=== PATIENT | female | born 1945 | race African-American/Black ===

== ENCOUNTER 2016-05-03 07:21 | Observation (INO) | payer MEDICARE, MEDICAID ==
[2016-05-03] MEDS ORDERED: METHYLPREDNISOLONE INJ 125 MG/2 ML SDV IV ONE (08:01)
[2016-05-03 08:10] LABS: ABSOLUTE BASOPHILS # (AUTO) 0.1 10^3/uL (0.0-0.2); ABSOLUTE EOSINOPHILS # (AUTO) 0.4 10^3/uL (0.0-0.6); ABSOLUTE LYMPHOCYTES (AUTO) 1.9 10^3/uL (0.5-4.7); ABSOLUTE MONOCYTES (AUTO) 0.6 10^3/uL (0.1-1.4); ABSOLUTE NEUT (AUTO) 6.5 10^3/uL (1.7-8.2); BASOPHILS % (AUTO) 0.7 % (0-2); EOSINOPHILS % (AUTO) 4.3 % (0-6); HEMATOCRIT 37.4 % (36.0-47.0); HEMOGLOBIN 12.3 g/dL (12.0-15.5); HGB HCT DIFFERENCE -0.5; MEAN CORPUSCULAR HEMOGLOBIN 28.7 pg (27.0-33.4); MEAN CORPUSCULAR HGB CONC 32.8 g/dL (32.0-36.0); MEAN CORPUSCULAR VOLUME 88 fl (80-97); MONOCYTES % (AUTO) 6.2 % (3-13); RED BLOOD COUNT 4.27 10^6/uL (3.72-5.28); RED CELL DISTRIBUTION WIDTH 18.1 % (11.5-14.0); SEGMENTED NEUTROPHILS % (AUTO) 68.8 % (42-78); WHITE BLOOD COUNT 9.4 10^3/uL (4.0-10.5)
[2016-05-03 08:12] LABS: VENOUS BLOOD BASE EXCESS -0.6 mmol/L; VENOUS BLOOD HCO3 24.9 mmol/L (20-32); VENOUS BLOOD PCO2 44.3 mmHg (35-63); VENOUS BLOOD PH 7.37 (7.30-7.42)
--- NOTE | 2016-05-03 08:25 | EKG REPORT ---
SEVERITY:- ABNORMAL ECG - SINUS RHYTHM LEFT AXIS DEVIATION PROBABLE LEFT VENTRICULAR HYPERTROPHY : Confirmed by: Anant Watts 03-May-2016 08:25:09
[2016-05-03 08:41] LABS: APPEARANCE,URINE CLOUDY; BILIRUBIN,URINE NEGATIVE (NEGATIVE); GLUCOSE, URINE NEGATIVE (NEGATIVE); KETONES,URINE NEGATIVE (NEGATIVE); LEUKOCYTE ESTERASE,URINE NEGATIVE (NEGATIVE); NITRITE,URINE NEGATIVE (NEGATIVE); PROTEIN,URINE NEGATIVE (NEGATIVE); UROBILINOGEN,URINE NEGATIVE mg/dL (<2.0)
--- NOTE | 2016-05-03 09:10 | ER Document Report ---
ED General - General Chief Complaint: Breathing Difficulty Stated Complaint: DIFFICULTY BREATHING Mode of Arrival: Ambulatory Information source: Patient Notes: 70 y/o F presents to ED c/o sob, chest pain, and headache. Pt reports hx of interstitial lung disease, HTN and states worsening of her chronic sob and cough over the last 2 days with associated mid chest/substernal pain worse with deep breathing and coughing. Also states has had a headache over the last two days. Reports was laying on her couch 2 days ago and awake on her floor. States is not sure if she fell asleep, struck head, or lost consciousness however reports developed headache subsequently in the day. States pain is mostly to the left side of her face. Denies fever, neck pain, vision changes, n/v, or hemoptysis. TRAVEL OUTSIDE OF THE [place] IN LAST 30 DAYS: No - HPI Onset/Duration: Persistent Quality of pain: Achy Severity: Mild Pain Level: 2 Associated symptoms: Productive cough, Headache, Shortness of breath Similar symptoms previously: Yes Recently seen / treated by doctor: No - Related Data Allergies/Adverse Reactions: No Known Allergies Allergy (Verified 05/03/16 07:27) Home Medications: Current Home Medications Albuterol Sulfate [Albuterol Sulfate 2.5mg/3 mL] 1 vial IH Q4 PRN 05/03/16 [ History] Albuterol Sulfate [Proair HFA] 1 - 2 puff IH Q4 PRN 05/03/16 [History] Amlodipine/Atorvastatin [Amlodipine-Atorvast 10-40 mg] 1 tab PO DAILY 05/03/16 [ History] Diclofenac Sodium [Voltaren] 100 gm TP PRN PRN 05/03/16 [History] Fluticasone/Salmeterol [Advair 250-50 Diskus 28 dose] 1 inh IH Q12H 05/03/16 [ History] Latanoprost 1 drop OD QHS 05/03/16 [History] Metformin HCl [Glucophage] 1,000 mg PO BID 05/03/16 [History] Omeprazole 20 mg PO DAILY 05/03/16 [History] Tramadol HCl/Acetaminophen [Tramadol-Acetaminophn 37.5-325] 1 each PO Q8H PRN [History] Valsartan/Hydrochlorothiazide [Valsartan-Hctz 160-12.5 mg Tab] 1 each PO DAILY 05/03/16 [History] Past Medical History - General Information source: Patient - Social History Smoking Status: Former Smoker Chew tobacco use (# tins/day): No Frequency of alcohol use: Occasional Drug Abuse: None Lives with: Family Family History: Reviewed & Not Pertinent Patient has suicidal ideation: No Patient has homicidal ideation: No - Past Medical History Cardiac Medical History: Reports: Hx Hypertension Pulmonary Medical History: Reports: Other - Interstitial lung disease/fibrosis EENT Medical History: Reports: Eyes - glaucoma Endocrine Medical History: Reports: Hx Diabetes Mellitus Type 2 Surgical Hx: Negative - Immunizations Hx Diphtheria, Pertussis, Tetanus Vaccination: Yes Review of Systems - Review of Systems Constitutional: No symptoms reported EENT: No symptoms reported Cardiovascular: See HPI Respiratory: See HPI Gastrointestinal: No symptoms reported Genitourinary: No symptoms reported Female Genitourinary: No symptoms reported Musculoskeletal: No symptoms reported Skin: No symptoms reported Hematologic/Lymphatic: No symptoms reported Neurological/Psychological: See HPI -: Yes All other systems reviewed and negative Physical Exam - Vital signs Vitals: Temp Pulse Resp BP Pulse Ox 98.8 F 108 H 22 H 147/80 H 89 L 05/03/16 07:30 05/03/16 07:30 05/03/16 07:30 05/03/16 07:30 05/03/16 07:30 Interpretation: Normal - General General appearance: Appears well, Alert In distress: None - HEENT Head: Normocephalic, Atraumatic Eyes: Normal Conjunctiva: Normal Eyelashes: Normal Pupils: PERRL Ears: Normal External canal: Normal Tympanic membrane: Normal Sinus: Normal Nasal: Normal Mouth/Lips: Normal Mucous membranes: Normal, Moist Pharynx: Normal Neck: Normal. No: Anterior cervical chain, Posterior cervical chain, Lymphadenopathy, Meningismus, Subcutaneous emphysema - Respiratory Respiratory status: No respiratory distress, Other - able to speak in full sentences. No: Labored Chest status: Nontender, Pain with cough, Pain with deep breathing. No: Tender Breath sounds: Normal, Productive cough Chest palpation: Normal. No: Flail segment, [place] frothy sputum, Purulent sputum , Subcutaneous emphysema, Sucking chest wound, Tender, Ecchymosis, Wounds, Other - Cardiovascular Rhythm: Regular Heart sounds: Normal auscultation Murmur: No Pulses: Normal: Radial Normal capillary refill: Yes - Abdominal Inspection: Normal Distension: No distension Bowel sounds: Normal Tenderness: Nontender Organomegaly: No organomegaly - Back Back: Normal, Nontender - Extremities General upper extremity: Normal inspection, Nontender, Normal color, Normal ROM , Normal strength, Normal temperature. No: Tender, Edema General lower extremity: Normal inspection, Nontender, Normal color, Normal ROM , Normal strength, Normal temperature, Normal weight bearing. No: Tender, Edema - Neurological Neuro grossly intact: Yes Cognition: Normal Orientation: AAOx4 [place] Coma Scale Eye Opening: Spontaneous Giovani Coma Scale Verbal: Oriented [place] Coma Scale Motor: Obeys Commands Giovani Coma Scale Total: 15 Speech: Normal Cranial nerves: Normal Motor strength normal: LUE, RUE, LLE, RLE Sensory: Normal - Psychological Associated symptoms: Normal affect, Normal mood - Skin Skin Temperature: Warm Skin Moisture: Dry Skin Color: Normal Skin Turgor: Elastic Course - Re-evaluation Re-evalutation: 05/03/16 11:05 Patient hemodynamically stable, in no distress, afebrile. Labs unremarkable, no acute findings on CT or x-ray. Patient presentation and findings discussed with patient's primary care provider Dr. Gonzalez who agrees to assume care and states will admit to IMCU unit. Findings and plan discussed with patient who verbalized understanding and agrees with plan. - Vital Signs Vital signs: Temp Pulse Resp BP Pulse Ox 97.9 F 108 H 22 H 135/58 H 96 05/03/16 13:52 05/03/16 14:00 05/03/16 13:52 05/03/16 13:52 05/03/16 13:52 - Laboratory Result Diagrams: 05/03/16 07:43 05/03/16 08:55 Laboratory results interpreted by me: 05/03/16 05/03/16 05/03/16 07:43 07:43 08:55 RDW 18.1 H Sodium 147.6 H Glucose 120 H Hemoglobin A1c % 6.5 H Total Bilirubin 2.2 H NT-Pro-B Natriuret Pep 05/03/16 08:55 RDW Sodium Glucose Hemoglobin A1c % Total Bilirubin NT-Pro-B Natriuret Pep 911 H - Diagnostic Test Radiology reviewed: Image reviewed, Reports reviewed - EKG Interpretation by Me EKG shows normal: Sinus rhythm, Marty, Intervals, QRS Complexes, ST-T Waves Rate: Normal Voltage: Consistant with LVH When compared to previous EKG there are: Previous EKG unavailable Discharge - Discharge Clinical Impression: Shortness of breath Chest pain Qualifiers: Chest pain type: unspecified Qualified Code(s): R07.9 - Chest pain, unspecified Condition: Stable Disposition: ADMITTED INPATIENT Admitting Provider: [facility] Admitted: [facility]
[2016-05-03 09:23] LABS: ALANINE AMINOTRANSFERASE 34 U/L (9-52); ALBUMIN 4.8 g/dL (3.5-5.0); ALKALINE PHOSPHATASE 103 U/L (38-126); ANION GAP 14 (5-19); ASPARTATE AMINO TRANSFERASE 20 U/L (14-36); BILIRUBIN,TOTAL 2.2 mg/dL (0.2-1.3); BLOOD UREA NITROGEN 9 mg/dL (7-20); CARBON DIOXIDE 28 mmol/L (22-30); CHLORIDE 106 mmol/L (98-107); CREATINE KINASE 78 U/L (30-135); CREATININE RESULT 0.79 mg/dL (0.52-1.25); GLUCOSE 120 mg/dL (75-110); POTASSIUM 3.8 mmol/L (3.6-5.0); SODIUM 147.6 mmol/L (137-145); TOTAL PROTEIN 8.2 g/dL (6.3-8.2)
[2016-05-03 09:35] LABS: CREATINE KINASE MB 0.61 ng/mL (<4.55)
[2016-05-03 09:38] LABS: TROPONIN I < 0.012 ng/mL
[2016-05-03] MEDS ORDERED: ASPIRIN 81 MG TABLET, CHEWABLE PO ONE (11:03)
[2016-05-03] MEDS ORDERED: ALBUTEROL SULFATE HFA (90 MCG/PUFF) 8 GM MDI (1 MDI/ER DISP) IH PRN (13:52)
[2016-05-03] MEDS ORDERED: IPRATROPIUM/ALBUTEROL 0.5-2.5 MG/3 ML AMPUL NEB PRN (13:56)
[2016-05-03] MEDS ORDERED: AMLODIPINE PO SCH (14:00)
[2016-05-03] MEDS ORDERED: ATORVASTATIN PO SCH (14:00)
[2016-05-03] MEDS ORDERED: (PENDING PHARMACY ID) (Valsartan/Hydrochlorothiazide [Valsartan-Hctz 160-12.5 Mg Tab] 1 EA PO SCH (14:00)
--- NOTE | 2016-05-03 14:20 | PDOC H&P ---
History of Present Illness Admission Date/PCP: 05/03/16 12:00 CHIKI ESCOBEDO, History of Present Illness: FABIOLA BETH is a 70 year old female, she came to the emergency room because of progressive shortness of breath, in the last 3 days, in the emergency. CT chest was done and it showed chronic interstitial changes, septal thickening with apical areas of fibrosis. There is mild areas of ground glass density throughout the lungs. Changes are chronic, without any superimposed developing opacity or pleural disease. There is no emboli visualized in the main pulmonary arteries ordered the subsegmental branches. She also stated that on Wednesday after she got home from work, she slept in the couch, but when she woke up the following day she found herself on the floor , she does not remember the circumstances of this event, she is not sure if she was unconscious. She complained of headache, the headache started after she fell, in the emergency room, CT head was done it was negative. She also stated that the headache involved the eyeball, it seems like the pain is in the back, eyeball. Past Medical History Cardiac Medical History: Reports: Hypertension Pulmonary Medical History: Reports: Other - Idiopathic pulmonary fibrosis EENT Medical History: Reports: Eyes - glaucoma Endocrine Medical History: Reports: Diabetes Mellitus Type 2 Social History Lives with: Family Smoking Status: Former Smoker Cigarettes Packs Per Day: 2 Number of Years Smokin Last Time Smoked: 2000 Frequency of Alcohol Use: Occasional Hx Recreational Drug Use: No Drugs: None Hx Prescription Drug Abuse: No Family History Family History: Reviewed & Not Pertinent Parental Family History Reviewed: Yes Children Family History Reviewed: Yes Sibling(s) Family History Reviewed.: Yes Medication/Allergy Home Medications: Albuterol Sulfate [Albuterol Sulfate 2.5mg/3 mL] 1 vial IH Q4 PRN 05/03/16 Albuterol Sulfate [Proair HFA] 1 puff IH Q4HP PRN 05/03/16 Amlodipine/Atorvastatin [Amlodipine-Atorvast 10-40 mg] 1 tab PO DAILY 05/03/16 Diclofenac Sodium [Voltaren] 100 gm TP PRN PRN 05/03/16 Fluticasone/Salmeterol [Advair 250-50 Diskus 28 dose] 1 inh IH Q12 05/03/16 Latanoprost 1 drop OD QHS 05/03/16 Metformin HCl [Glucophage] 1,000 mg PO BID 05/03/16 Omeprazole 20 mg PO DAILY 05/03/16 Tramadol HCl/Acetaminophen [Tramadol-Acetaminophn 37.5-325] 1 each PO Q8H PRN Valsartan/Hydrochlorothiazide [Valsartan-Hctz 160-12.5 mg Tab] 1 each PO DAILY 05/03/16 Allergies/Adverse Reactions: No Known Allergies Allergy (Verified 05/03/16 07:27) Review of Systems Constitutional: PRESENT: headache(s) Eyes: PRESENT: other - pain behinde the eye ball Ears: ABSENT: hearing changes Cardiovascular: PRESENT: dyspnea on exertion Respiratory: PRESENT: dyspnea Gastrointestinal: ABSENT: abdominal pain, constipation, diarrhea, hematemesis, hematochezia, nausea, vomiting Genitourinary: ABSENT: as per HPI, difficulty urinating, dysuria, hematuria, nocturia, other Musculoskeletal: PRESENT: back pain Integumentary: ABSENT: rash, wounds Neurological: ABSENT: abnormal gait, abnormal speech, confusion, dizziness, focal weakness, syncope Psychiatric: ABSENT: anxiety, depression, homidical ideation, suicidal ideation Endocrine: ABSENT: as per HPI, cold intolerance, flushing, heat intolerance, menstrual abnormalities, polydipsia, polyphagia, polyuria, other Hematologic/Lymphatic: ABSENT: easy bleeding, easy bruising, lymphadenopathy Physical Exam Vital Signs: Temp Pulse Resp BP Pulse Ox 97.9 F 90 22 H 135/58 H 96 05/03/16 13:52 05/03/16 13:52 05/03/16 13:52 05/03/16 13:52 05/03/16 13:52 General appearance: PRESENT: no acute distress, well-developed, well-nourished Head exam: PRESENT: atraumatic, normocephalic Eye exam: PRESENT: conjunctiva pink, EOMI, PERRLA Neck exam: PRESENT: full ROM Respiratory exam: PRESENT: rales Cardiovascular exam: PRESENT: +S1, +S2 Vascular exam: PRESENT: normal capillary refill GI/Abdominal exam: PRESENT: normal bowel sounds, soft Neurological exam: PRESENT: alert, awake, oriented to person, oriented to place , oriented to time, oriented to situation, CN II-XII grossly intact. ABSENT: motor sensory deficit Psychiatric exam: PRESENT: appropriate affect, normal mood Skin exam: PRESENT: dry, intact, warm. ABSENT: cyanosis, rash Results Impressions: Chest X-Ray 05/03/16 07:44 IMPRESSION: Similar changes compared to prior imaging as above. Chronic interstitial disease. Mediastinal adenopathy. Head CT 05/03/16 07:47 IMPRESSION: 1. Mild chronic changes suggesting small vessel disease. No acute abnormality detected. Chest/Abdomen CTA 05/03/16 08:22 IMPRESSION: 1. Chronic lung disease, interstitial changes with pulmonary fibrosis. Chronic mediastinal and hilar adenopathy is also present. 2. Cardiomegaly with mild pericardial effusion, also chronic. 3. No aortic aneurysm or pulmonary embolus. Assessment & Plan - Diagnosis (1) Idiopathic pulmonary fibrosis Is this a current diagnosis for this admission?: YesPlan: She has idiopathic pulmonary fibrosis, on auscultation of the lung. There is diffuse dry rales, she probably have symptomatic pulmonary hypertension, a 2-D echo will be ordered to measure pulmonary pressures, she is presently on oxygen. She will be maintained on the same therapy. There is no evidence that intravenous Solu-Medrol have any beneficial effect on pulmonary fibrosis (2) Type 2 diabetes mellitus Qualifiers: Diabetes mellitus complication status: without complication Diabetes mellitus superintendent terminal insulin use: without superintendent terminal use Qualified Code(s): E11.9 - Type 2 diabetes mellitus without complications Is this a current diagnosis for this admission?: Yes (3) Loss of consciousness Is this a current diagnosis for this admission?: YesPlan: I am not sure what to make of her loss of consciousness, (4) Headache Qualifiers: Headache type: unspecified Headache chronicity pattern: unspecified pattern Intractability: intractable Qualified Code(s): R51 - Headache Is this a current diagnosis for this admission?: YesPlan: MRI brain will be ordered
[2016-05-03] MEDS ORDERED: ALBUTEROL SULFATE HFA (90 MCG/PUFF) 200 PUFF/8.5 GM MDI IH PRN (15:03)
[2016-05-03] MEDS ORDERED: ATORVASTATIN CALCIUM 40 MG TABLET PO ONE (15:30)
[2016-05-03] MEDS ORDERED: AMLODIPINE BESYLATE 10 MG TABLET PO ONE (15:30)
[2016-05-03] MEDS ORDERED: LANSOPRAZOLE 15 MG TAB.RAP.DR PO ONE (15:30)
[2016-05-03] MEDS ORDERED: HYDROCHLOROTHIAZIDE 12.5 MG CAPSULE PO ONE (15:30)
[2016-05-03] MEDS ORDERED: VALSARTAN 160 MG TABLET PO ONE (15:30)
[2016-05-03 15:32] LABS: PROTHROMBIN TIME 14.3 SEC (11.4-15.4)
[2016-05-03 15:33] LABS: PARTIAL THROMBOPLASTIN TIME 26.4 SEC (23.5-35.8)
[2016-05-03] MEDS ORDERED: ENOXAPARIN SODIUM INJ 40 MG/0.4 ML DISP.SYRIN SUBCUT ONE (16:00)
[2016-05-03] MEDS: METFORMIN HCL 500 MG TABLET PO SCH (16:41)
[2016-05-03 16:48] LABS: ARTERIAL BLOOD BASE EXCESS 2.8 mmol/L; ARTERIAL BLOOD O2 SATURATION 90.8 % (94-98)
[2016-05-03 17:09] LABS: CREATINE KINASE MB 0.37 ng/mL (<4.55)
[2016-05-03 17:15] LABS: TROPONIN I < 0.012 ng/mL
[2016-05-03 17:27] LABS: THYROID STIMULATING HORMONE 0.2 uIU/mL (0.47-4.68)
[2016-05-03 18:16] LABS: APPEARANCE,URINE CLEAR; BILIRUBIN,URINE NEGATIVE (NEGATIVE); GLUCOSE, URINE 50 mg/dL (NEGATIVE); KETONES,URINE NEGATIVE (NEGATIVE); LEUKOCYTE ESTERASE,URINE NEGATIVE (NEGATIVE); NITRITE,URINE NEGATIVE (NEGATIVE); PROTEIN,URINE NEGATIVE (NEGATIVE); URINE SPECIFIC GRAVITY 1.035; UROBILINOGEN,URINE NEGATIVE mg/dL (<2.0)
[2016-05-03] MEDS: BUTALB/ACETAMINOPHEN/CAFFEINE 1 TAB EACH PO PRN (20:15)
--- NOTE | 2016-05-03 21:33 | EKG REPORT ---
SEVERITY:- ABNORMAL ECG - SINUS TACHYCARDIA LEFT ANTERIOR FASCICULAR BLOCK CONSIDER LEFT VENTRICULAR HYPERTROPHY : Confirmed by: Anant Watts 03-May-2016 21:32:51
[2016-05-03] MEDS ORDERED: LATANOPROST 0.005% OPH SOLN 2.5 ML OD SCH (22:00)
[2016-05-03 23:25] LABS: CREATINE KINASE MB 0.47 ng/mL (<4.55)
[2016-05-03 23:26] LABS: TROPONIN I < 0.012 ng/mL
[2016-05-04] MEDS: BUTALB/ACETAMINOPHEN/CAFFEINE 1 TAB EACH PO PRN ×2 (04:43→16:50)
[2016-05-04 04:49] LABS: ABSOLUTE LYMPHOCYTES (AUTO) 1.1 10^3/uL (0.5-4.7); ABSOLUTE MONOCYTES (AUTO) 0.6 10^3/uL (0.1-1.4); ABSOLUTE NEUT (AUTO) 5.8 10^3/uL (1.7-8.2); BASOPHILS % (AUTO) 0.3 % (0-2); HEMATOCRIT 31.7 % (36.0-47.0); HEMOGLOBIN 10.8 g/dL (12.0-15.5); HGB HCT DIFFERENCE 0.7; LYMPHOCYTES % (AUTO) 14.8 % (13-45); MEAN CORPUSCULAR HEMOGLOBIN 29.4 pg (27.0-33.4); MEAN CORPUSCULAR HGB CONC 33.9 g/dL (32.0-36.0); MEAN CORPUSCULAR VOLUME 87 fl (80-97); MONOCYTES % (AUTO) 8.4 % (3-13); RED BLOOD COUNT 3.66 10^6/uL (3.72-5.28); RED CELL DISTRIBUTION WIDTH 18.2 % (11.5-14.0); SEGMENTED NEUTROPHILS % (AUTO) 76.5 % (42-78); WHITE BLOOD COUNT 7.6 10^3/uL (4.0-10.5)
[2016-05-04 05:13] LABS: ALANINE AMINOTRANSFERASE 24 U/L (9-52); ALKALINE PHOSPHATASE 72 U/L (38-126); ANION GAP 13 (5-19); ASPARTATE AMINO TRANSFERASE 12 U/L (14-36); BLOOD UREA NITROGEN 19 mg/dL (7-20); CALCIUM 9.8 mg/dL (8.4-10.2); CARBON DIOXIDE 26 mmol/L (22-30); CHLORIDE 103 mmol/L (98-107); CREATINE KINASE 41 U/L (30-135); CREATININE RESULT 0.95 mg/dL (0.52-1.25); GLUCOSE 187 mg/dL (75-110); SODIUM 141.6 mmol/L (137-145); TOTAL PROTEIN 6.6 g/dL (6.3-8.2)
[2016-05-04 05:20] LABS: CREATINE KINASE MB 0.51 ng/mL (<4.55)
[2016-05-04 05:24] LABS: TROPONIN I < 0.012 ng/mL
[2016-05-04] MEDS ORDERED: LANSOPRAZOLE 15 MG TAB.RAP.DR PO SCH (08:00)
[2016-05-04] MEDS ORDERED: ENOXAPARIN SODIUM INJ 40 MG/0.4 ML DISP.SYRIN SUBCUT SCH (08:00)
[2016-05-04] MEDS: METFORMIN HCL 500 MG TABLET PO SCH ×2 (09:16→16:49)
[2016-05-04] MEDS ORDERED: ATORVASTATIN CALCIUM 40 MG TABLET PO SCH (10:00)
[2016-05-04] MEDS ORDERED: VALSARTAN 160 MG TABLET PO SCH (10:00)
[2016-05-04] MEDS ORDERED: HYDROCHLOROTHIAZIDE 12.5 MG CAPSULE PO SCH (10:00)
[2016-05-04] MEDS ORDERED: AMLODIPINE BESYLATE 10 MG TABLET PO SCH (10:00)
[2016-05-04] MEDS ORDERED: APAP PO PRN (15:15)
[2016-05-04] MEDS ORDERED: TRAMADOL PO PRN (15:15)
[2016-05-04 19:27] VITALS: BP 140/63
--- NOTE | 2016-05-04 19:36 | PDOC DISCHARGE SUMMARY ---
General - Admit/Disc Date/PCP Admission Date/Primary Care Provider: 05/03/16 13:56 CHIKI ESCOBEDO, Discharge Date: 05/04/16 - Discharge Diagnosis (1) Idiopathic pulmonary fibrosis Is this a current diagnosis for this admission?: Yes (2) Type 2 diabetes mellitus Is this a current diagnosis for this admission?: Yes (3) Loss of consciousness Is this a current diagnosis for this admission?: Yes (4) Headache Is this a current diagnosis for this admission?: Yes - Additional Information Home Medications: RX: Albuterol Sulfate [Albuterol Sulfate 2.5mg/3 mL] 1 vial IH Q4 PRN 05/03/16 RX: Albuterol Sulfate [Proair HFA] 1 puff IH Q4HP PRN 05/03/16 RX: Amlodipine/Atorvastatin [Amlodipine-Atorvast 10-40 mg] 1 tab PO DAILY RX: Diclofenac Sodium [Voltaren] 100 gm TP PRN PRN 05/03/16 RX: Fluticasone/Salmeterol [Advair 250-50 Diskus 28 dose] 1 inh IH Q12 05/03/16 RX: Latanoprost 1 drop OD QHS 05/03/16 RX: Metformin HCl [Glucophage] 1,000 mg PO BID 05/03/16 RX: Omeprazole 20 mg PO DAILY 05/03/16 RX: Tramadol HCl/Acetaminophen [Tramadol-Acetaminophn 37.5-325] 1 each PO Q8H PRN 05/03/16 RX: Valsartan/Hydrochlorothiazide [Valsartan-Hctz 160-12.5 mg Tab] 1 each PO DAILY 05/03/16 RX: Butalb/Acetaminophen/Caffeine [Fioricet (50-325-40 mg) Tablet] 1 tab PO Q4HP PRN #60 each 05/04/16 History of Present Illness History of Present Illness: FABIOLA BETH is a 70 year old female, she came to the emergency room because of progressive shortness of breath, in the last 3 days, in the emergency. CT chest was done and it showed chronic interstitial changes, septal thickening with apical areas of fibrosis. There is mild areas of ground glass density throughout the lungs. Changes are chronic, without any superimposed developing opacity or pleural disease. There is no emboli visualized in the main pulmonary arteries ordered the subsegmental branches. She also stated that on Wednesday after she got home from work, she slept in the couch, but when she woke up the following day she found herself on the floor , she does not remember the circumstances of this event, she is not sure if she was unconscious. She complained of headache, the headache started after she fell, in the emergency room, CT head was done it was negative. She also stated that the headache involved the eyeball, it seems like the pain is in the back, eyeball. Hospital Course Hospital Course: Patient was admitted yesterday where she presented with progressive shortness of breath, she also had episode of loss of consciousness, the circumstances of which is not clear. A 2-D echo was done today. He showed severe pulmonary hypertension, patient is known to have idiopathic pulmonary fibrosis. She was observed in the hospital, MRI brain was done that was no acute pathology. Physical Exam Vital Signs: Temp Pulse Resp BP Pulse Ox 98.1 F 97 16 140/63 H 96 05/04/16 19:24 05/04/16 19:24 05/04/16 19:24 05/04/16 19:24 05/04/16 19:24 Intake & Output 05/03/16 05/04/16 05/05/16 06:59 06:59 06:59 Intake Total 1535 810 Output Total 500 1200 Balance 1035 -390 Weight 75.8 kg General appearance: PRESENT: no acute distress Eye exam: PRESENT: PERRLA Respiratory exam: PRESENT: rales Cardiovascular exam: PRESENT: +S1, +S2 Results Laboratory Results: 05/04/16 04:23 05/04/16 04:23 05/04/16 05/04/16 04:23 04:23 WBC 7.6 RBC 3.66 L Hgb 10.8 L Hct 31.7 L MCV 87 MCH 29.4 MCHC 33.9 RDW 18.2 H Plt Count 233 Seg Neutrophils % 76.5 Lymphocytes % 14.8 Monocytes % 8.4 Eosinophils % 0.0 Basophils % 0.3 Absolute Neutrophils 5.8 Absolute Lymphocytes 1.1 Absolute Monocytes 0.6 Absolute Eosinophils 0.0 Absolute Basophils 0.0 Sodium 141.6 Potassium 4.0 Chloride 103 Carbon Dioxide 26 Anion Gap 13 BUN 19 Creatinine 0.95 Est GFR ( Amer) > 60 Est GFR (Non-Af Amer) 58 L Glucose 187 H Calcium 9.8 Total Bilirubin 1.0 AST 12 L ALT 24 Alkaline Phosphatase 72 Total Protein 6.6 Albumin 4.0 05/03/16 05/03/16 05/03/16 16:20 16:20 22:35 Creatine Kinase 55 50 CK-MB (CK-2) 0.37 Troponin I < 0.012 05/03/16 05/04/16 05/04/16 22:35 04:23 04:23 Creatine Kinase 41 CK-MB (CK-2) 0.47 0.51 Troponin I < 0.012 < 0.012 Impressions: Head MRI 05/03/16 00:00 IMPRESSION: MINIMAL MICROVASCULAR ISCHEMIC CHANGE. OTHERWISE NORMAL STUDY. Chest X-Ray 05/03/16 07:44 IMPRESSION: Similar changes compared to prior imaging as above. Chronic interstitial disease. Mediastinal adenopathy. Head CT 05/03/16 07:47 IMPRESSION: 1. Mild chronic changes suggesting small vessel disease. No acute abnormality detected. Chest/Abdomen CTA 05/03/16 08:22 IMPRESSION: 1. Chronic lung disease, interstitial changes with pulmonary fibrosis. Chronic mediastinal and hilar adenopathy is also present. 2. Cardiomegaly with mild pericardial effusion, also chronic. 3. No aortic aneurysm or pulmonary embolus.
--- NOTE | 2016-05-04 23:28 | XCELERA REPORT ---
[address] [address] Transthoracic Echocardiogram Report Name: FABIOLA BETH Age: 70 yrs Gender: Female : 1945 Patient Status: Inpatient Patient Location: [id number] Study Date: 05/04/2016 01:40 PM Height: 65 in Weight: 163 lb BSA: 1.8 m2 Procedure: A complete two-dimensional transthoracic echocardiogram was performed (2D, M-mode, spectral and color flow Doppler). The study was technically adequate with some images being suboptimal in quality. Reason For Study: pulmonary hypertension Ordering Physician: CHIKI ESCOBEDO Performed By: Mercy Davies Interpretation Summary There is mild concentric left ventricular hypertrophy. The left ventricular ejection fraction is normal. The left ventricle is grossly normal size. Doppler measurements suggest pseudonormalized left ventricular relaxation, which is associated with grade II/IV or mild to moderate diastolic dysfunction Wall motion cannot be accurately commented on, but no definite regional wall motion abnormalities noted. The right ventricle is mildly dilated. The right ventricle appears to be hypertrophied The right ventricular systolic function is normal. The right atrium is mildly dilated. The left atrial size is normal. There is no mitral valve stenosis. There is a mild amount of mitral regurgitation There is no aortic valve stenosis There is a trace amount of aortic regurgitation There is a mild to moderate amount of tricuspid regurgitation There is servere pulmonary hypertension by echo Best estimated right ventricular systolic pressure is elevated at >60mmHg. (65-75 mmHg) Minimal pericardial effusion. MMode/2D Measurements \T\ Calculations RVDd: 3.3 cm LVIDd: 3.8 cm FS: 43.3 % Ao root diam: 2.6 cm IVSd: 1.1 cm LVIDs: 2.2 cm EDV(Teich): 62.9 ml LVPWd: 1.1 cm ESV(Teich): 15.6 ml Ao root area: 5.3 cm2 EF(Teich): 75.2 % LA dimension: 3.1 cm Doppler Measurements \T\ Calculations MV E max jake: MV P1/2t max jake: Ao V2 max: LV V1 max P.3 cm/sec 91.8 cm/sec 175.5 cm/sec 5.3 mmHg MV A max jake: MV P1/2t: 79.7 msec Ao max PG: LV V1 max: 117.0 cm/sec 12.3 mmHg 115.5 cm/sec MV E/A: 0.79 MVA(P1/2t): 2.8 cm2 MV dec slope: 337.5 cm/sec2 MV dec time: 0.27 sec PA V2 max: PI end-d jake: TR max jake: 68.6 cm/sec 177.8 cm/sec 412.7 cm/sec PA max PG: TR max P.9 mmHg 68.1 mmHg Left Ventricle The left ventricle is grossly normal size. There is mild concentric left ventricular hypertrophy. The left ventricular ejection fraction is normal. Doppler measurements suggest pseudonormalized left ventricular relaxation, which is associated with grade II/IV or mild to moderate diastolic dysfunction. Wall motion cannot be accurately commented on, but no definite regional wall motion abnormalities noted. Right Ventricle The right ventricle is mildly dilated. The right ventricle appears to be hypertrophied. The right ventricular systolic function is normal. Atria The right atrium is mildly dilated. The left atrial size is normal. Interarterial septum not well visualized and not well dopplered. Cannot comment on ASD/PFO presence. Mitral Valve There is mild mitral leaflet calcification. There is no mitral valve stenosis. There is a mild amount of mitral regurgitation. Aortic Valve The aortic valve is sclerotic, but shows no functional abnormality. There is no aortic valve stenosis. There is a trace amount of aortic regurgitation. Tricuspid Valve The tricuspid valve is not well visualized, but is grossly normal. There is no tricuspid stenosis. There is a mild to moderate amount of tricuspid regurgitation. There is servere pulmonary hypertension by echo. Best estimated right ventricular systolic pressure is elevated at >60mmHg. Pulmonic Valve The pulmonic valve is not well visualized. There is a mild amount of pulmonic regurgitation. Great Vessels The aortic root is not well visualized but is probably normal size. The inferior vena cava appeared normal and decreased > 50% with respiration (RAP 5-10 mmHg). Effusions Minimal pericardial effusion. : CHIKI ESCOBEDO > Anant Watts
[2016-05-05 15:53] LABS: URINE BARBITURATES SCREEN NEGATIVE; URINE METHADONE SCREEN NEGATIVE; URINE PHENCYCLIDINE SCREEN NEGATIVE
== END 2016-05-04 20:37 | disposition home or self-care (01) ==
LOC: ER 07:21 → EH 12:00 → UNDOADMIN 12:00 → 3W 12:49 → EH 12:49 → INTOOBSV 13:56 → 3W 13:56
PROVIDERS: ADMIT Internal Medicine; ATTEND Internal Medicine
DX: J84.112 Idiopathic pulmonary fibrosis (principal); I27.2 Other secondary pulmonary hypertension; E11.9 Type 2 diabetes mellitus without complications; Z79.84 Long term (current) use of oral hypoglycemic drugs; R55 Syncope and collapse; R51 Headache; I10 Essential (primary) hypertension; Z87.891 Personal history of nicotine dependence
CPT/HCPCS: 93005 ×2; 99285; 96374; 36415 ×2; 87040; 87086; 84439; 82553 ×2; 82962; 82140; 82150; 82803 ×2; 82550 ×2; 83690; 84443; 85025 ×2; 85610; 85730; 80076; 80048; 80053; 81001; 84484 ×2; 80307; 83036; 83880; 93306; 70551; 71010; 70450; 71275; 93010; 36600; G0378; A9270 ×12; J2930; J1650 ×2; J3490

== ENCOUNTER 2016-06-25 05:59 | Emergency (ER) | payer OTHER, MEDICARE, MEDICAID ==
[2016-06-25 07:40] LABS: ABSOLUTE BASOPHILS # (AUTO) 0.1 10^3/uL (0.0-0.2); ABSOLUTE EOSINOPHILS # (AUTO) 0.2 10^3/uL (0.0-0.6); ABSOLUTE MONOCYTES (AUTO) 0.4 10^3/uL (0.1-1.4); ABSOLUTE NEUT (AUTO) 6.8 10^3/uL (1.7-8.2); BASOPHILS % (AUTO) 0.8 % (0-2); EOSINOPHILS % (AUTO) 2.2 % (0-6); HEMOGLOBIN 11.4 g/dL (12.0-15.5); HGB HCT DIFFERENCE 0.2; LYMPHOCYTES % (AUTO) 11.9 % (13-45); MEAN CORPUSCULAR HEMOGLOBIN 29.7 pg (27.0-33.4); MEAN CORPUSCULAR HGB CONC 33.6 g/dL (32.0-36.0); MEAN CORPUSCULAR VOLUME 89 fl (80-97); MONOCYTES % (AUTO) 5.2 % (3-13); RED BLOOD COUNT 3.84 10^6/uL (3.72-5.28); RED CELL DISTRIBUTION WIDTH 17.4 % (11.5-14.0); SEGMENTED NEUTROPHILS % (AUTO) 79.9 % (42-78); WHITE BLOOD COUNT 8.5 10^3/uL (4.0-10.5)
[2016-06-25 07:44] LABS: PROTHROMBIN TIME 14.4 SEC (11.4-15.4)
[2016-06-25 07:45] LABS: PARTIAL THROMBOPLASTIN TIME 27.6 SEC (23.5-35.8)
[2016-06-25 07:56] LABS: ALANINE AMINOTRANSFERASE 24 U/L (9-52); ALBUMIN 4.7 g/dL (3.5-5.0); ALKALINE PHOSPHATASE 93 U/L (38-126); ANION GAP 13 (5-19); ASPARTATE AMINO TRANSFERASE 17 U/L (14-36); BILIRUBIN,TOTAL 1.9 mg/dL (0.2-1.3); BLOOD UREA NITROGEN 17 mg/dL (7-20); CALCIUM 10.2 mg/dL (8.4-10.2); CARBON DIOXIDE 25 mmol/L (22-30); CHLORIDE 107 mmol/L (98-107); CREATINE KINASE 132 U/L (30-135); CREATININE RESULT 0.88 mg/dL (0.52-1.25); GLUCOSE 114 mg/dL (75-110); POTASSIUM 3.9 mmol/L (3.6-5.0); SODIUM 145.4 mmol/L (137-145); TOTAL PROTEIN 7.8 g/dL (6.3-8.2)
[2016-06-25 08:08] LABS: CREATINE KINASE MB 0.77 ng/mL (<4.55)
[2016-06-25 08:11] LABS: TROPONIN I < 0.012 ng/mL
--- NOTE | 2016-06-25 09:14 | ER Document Report ---
ED General - General Chief Complaint: Syncope Stated Complaint: POSSIBLE SYNCOPE Mode of Arrival: Medic Information source: Patient Notes: 70-year-old female presents after syncopal episode. Patient denies any symptoms prior to the syncope currently only admits to a headache from where she fell. pt unsure how long she was down for . 1 similar episode 6 months ago TRAVEL OUTSIDE OF THE [place] IN LAST 30 DAYS: No - HPI Onset: Just prior to arrival Onset/Duration: Sudden Quality of pain: Achy Severity: Mild Pain Level: 1 Associated symptoms: Headache Exacerbated by: Denies Relieved by: Denies Similar symptoms previously: Yes Recently seen / treated by doctor: No - Related Data Allergies/Adverse Reactions: No Known Allergies Allergy (Verified 05/03/16 07:27) Past Medical History - Social History Smoking Status: Never Smoker Cigarette use (# per day): No Chew tobacco use (# tins/day): No Smoking Education Provided: No Frequency of alcohol use: None Drug Abuse: None Family History: Reviewed & Not Pertinent Patient has suicidal ideation: No Patient has homicidal ideation: No - Past Medical History Cardiac Medical History: Reports: Hx Hypercholesterolemia, Hx Hypertension Endocrine Medical History: Reports: Hx Diabetes Mellitus Type 2 Renal/ Medical History: Denies: Hx Peritoneal Dialysis Past Surgical History: Reports: Hx Cholecystectomy, Hx Hysterectomy - Immunizations Hx Diphtheria, Pertussis, Tetanus Vaccination: Yes Review of Systems - Review of Systems Notes: REVIEW OF SYSTEMS: CONSTITUTIONAL : Denies fever, chills, or sweats. Denies recent illness. EENT: Denies eye, ear, throat, or mouth pain or symptoms. Denies nasal or sinus congestion or discharge. Denies throat, tongue, or mouth swelling or difficulty swallowing. CARDIOVASCULAR: Denies chest pain. Denies palpitations or racing or irregular heart beat. Denies ankle edema. RESPIRATORY: Denies cough, cold, or chest congestion. Denies shortness of breath, difficulty breathing, or wheezing. GASTROINTESTINAL: Denies abdominal pain or distention. Denies nausea, vomiting , or diarrhea. Denies blood in vomitus, stools, or per rectum. Denies black, tarry stools. Denies constipation. GENITOURINARY: Denies difficulty urinating, painful urination, burning, frequency, blood in urine, or discharge. FEMALE GENITOURINARY: Denies vaginal bleeding, heavy or abnormal periods, irregular periods. Denies vaginal discharge or odor. MUSCULOSKELETAL: Denies back or neck pain or stiffness. Denies joint pain or swelling. SKIN: Denies rash, lesions or sores. HEMATOLOGIC : Denies easy bruising or bleeding. LYMPHATIC: Denies swollen, enlarged glands. NEUROLOGICAL: Admits to weakness PSYCHIATRIC: Denies anxiety or stress. Denies depression, suicidal ideation, or homicidal ideation. ALL OTHER SYSTEMS REVIEWED AND NEGATIVE. Dictation was performed using [employer] voice recognition software PHYSICAL EXAMINATION: GENERAL: Well-appearing, well-nourished and in no acute distress. HEAD: Parietal hematoma noted EYES: Pupils equal round and reactive to light, extraocular movements intact, conjunctiva are normal. ENT: Nares patent, oropharynx clear without exudates. Moist mucous membranes. NECK: Normal range of motion, supple without lymphadenopathy LUNGS: Breath sounds clear to auscultation bilaterally and equal. No wheezes rales or rhonchi. HEART: Regular rate and rhythm without murmurs ABDOMEN: Soft, nontender, nondistended abdomen. No guarding, no rebound. No masses appreciated. Female : deferred Musculoskeletal: Normal range of motion, no pitting or edema. No cyanosis. NEUROLOGICAL: Cranial nerves grossly intact. Normal speech, normal gait. Normal sensory, motor exams PSYCH: Normal mood, normal affect. SKIN: Warm, Dry, normal turgor, no rashes or lesions noted. Physical Exam - Vital signs Vitals: Temp 97.8 F 06/25/16 06:06 Course - Re-evaluation Re-evalutation: 06/25/16 09:13 physical exam and workup note no significant abnormality except for hematoma of scalp.. at this time patient is stable however i have stressed the importance of a cardiology workup for evaluation of the patients syncope Family is happy with plan and I will DC at this time After performing a Medical Screening Examination, I estimate there is LOW risk for INTRACRANIAL HEMORRHAGE, ISCHEMIC CVA, MALIGNANT DYSRHYTHMIA, ACUTE CORONARY SYNDROME, MENINGITIS, PULMONARY EMBOLISM, or SEPSIS thus I consider the discharge disposition reasonable. The patient and I have discussed the diagnosis and risks, and we agree with discharging home with close follow-up with the understanding that symptoms and presentations can change. We also discussed returning to the Emergency Department immediately if new or worsening symptoms occur. We have discussed the symptoms which are most concerning (e.g., changing or worsening pain, weakness, vomiting, fever) that necessitate immediate return. - Vital Signs Vital signs: Temp Pulse Resp BP Pulse Ox 97.8 F 80 21 H 135/80 H 93 06/25/16 06:06 06/25/16 06:07 06/25/16 07:59 06/25/16 08:00 06/25/16 08:01 - Laboratory Result Diagrams: 06/25/16 07:32 06/25/16 07:32 Laboratory results interpreted by me: 06/25/16 06/25/16 07:32 07:32 Hgb 11.4 L Hct 34.0 L RDW 17.4 H Seg Neutrophils % 79.9 H Lymphocytes % 11.9 L Sodium 145.4 H Glucose 114 H Total Bilirubin 1.9 H - Diagnostic Test Radiology reviewed: Image reviewed, Reports reviewed Discharge - Discharge Clinical Impression: Syncope and collapse Left parietal scalp hematoma Qualifiers: Encounter type: initial encounter Qualified Code(s): S00.03XA - Contusion of scalp, initial encounter Condition: Stable Disposition: HOME, SELF-CARE Instructions: Syncopal Episode ([facility]) Referrals: CHIKI ESCOBEDO MD [Primary Care Provider] - Follow up as needed JEN PEÑA MD [ACTIVE STAFF] - Follow up tomorrow
[2016-06-25 09:21] VITALS: BP 126/67
[2016-06-25] MEDS ORDERED: KETOROLAC TROMETHAMINE INJ/PF 30 MG/1 ML SDV IV ONE (09:26)
--- NOTE | 2016-06-26 12:51 | EKG REPORT ---
SEVERITY:- DEFECTIVE ECG - RIGHT AND LEFT ARM LEADS REVERSED, PLEASE REPEAT ECG : Confirmed by: Bridger Conrad MD 26-Jun-2016 12:49:58
== END 2016-06-25 09:31 | disposition home or self-care (01) ==
LOC: ER 05:59
DX: S00.03XA Contusion of scalp, initial encounter (principal); W19.XXXA Unspecified fall, initial encounter; R55 Syncope and collapse; R51 Headache; I10 Essential (primary) hypertension; E11.9 Type 2 diabetes mellitus without complications; R53.1 Weakness
CPT/HCPCS: 36415; 70450; 71010; 80053; 82550; 82553; 84484; 85025; 85610; 85730; 93005; 93010; 99285

== ENCOUNTER → 2016-08-21 | Outpatient (CLI) | payer MEDICARE, MEDICAID | LOC: WI 07:48 | PROVIDERS: ATTEND Internal Medicine | DX: Z12.31 Encounter for screening mammogram for malignant neoplasm of breast (principal); R92.2 Inconclusive mammogram | CPT/HCPCS: 77067; G0202 ==

== ENCOUNTER → 2016-08-25 | Outpatient (CLI) | payer MEDICARE, MEDICAID | LOC: RAD 13:35 | PROVIDERS: ATTEND Internal Medicine | DX: R94.4 Abnormal results of kidney function studies (principal) | CPT/HCPCS: 76770 ==

== ENCOUNTER → 2016-09-02 | Outpatient (CLI) | payer MEDICARE, MEDICAID | LOC: WI 14:35 | PROVIDERS: ATTEND Internal Medicine | DX: R92.2 Inconclusive mammogram (principal) | CPT/HCPCS: G0279; G0206 ==

== ENCOUNTER → 2016-09-10 | Outpatient (CLI) | payer MEDICARE, MEDICAID | LOC: RAD 09:34 | PROVIDERS: ATTEND Internal Medicine Critical Care Medicine | DX: R91.1 Solitary pulmonary nodule (principal); J45.909 Unspecified asthma, uncomplicated; J84.9 Interstitial pulmonary disease, unspecified; R06.09 Other forms of dyspnea; R09.02 Hypoxemia; R06.83 Snoring; G47.30 Sleep apnea, unspecified; R53.83 Other fatigue; R59.0 Localized enlarged lymph nodes | CPT/HCPCS: 71250 ==

== ENCOUNTER 2016-09-29 05:58 | Day surgery (SDC) | payer MEDICARE, MEDICAID ==
--- NOTE | 2016-09-22 10:01 | EKG REPORT ---
SEVERITY:- ABNORMAL ECG - SINUS RHYTHM LEFT ANTERIOR FASCICULAR BLOCK CONSIDER LEFT VENTRICULAR HYPERTROPHY ABNORMAL T, CONSIDER ISCHEMIA, ANTERIOR LEADS : Confirmed by: Anant Watts 22-Sep-2016 10:00:32
[2016-09-22 10:09] LABS: ABSOLUTE EOSINOPHILS # (AUTO) 0.2 10^3/uL (0.0-0.6); ABSOLUTE LYMPHOCYTES (AUTO) 1.7 10^3/uL (0.5-4.7); ABSOLUTE MONOCYTES (AUTO) 0.6 10^3/uL (0.1-1.4); ABSOLUTE NEUT (AUTO) 4.3 10^3/uL (1.7-8.2); BASOPHILS % (AUTO) 0.7 % (0-2); EOSINOPHILS % (AUTO) 3.4 % (0-6); HEMATOCRIT 34.2 % (36.0-47.0); HEMOGLOBIN 11.3 g/dL (12.0-15.5); HGB HCT DIFFERENCE -0.3; LYMPHOCYTES % (AUTO) 24.3 % (13-45); MEAN CORPUSCULAR HEMOGLOBIN 30.1 pg (27.0-33.4); MEAN CORPUSCULAR VOLUME 91 fl (80-97); MONOCYTES % (AUTO) 8.1 % (3-13); RED BLOOD COUNT 3.75 10^6/uL (3.72-5.28); RED CELL DISTRIBUTION WIDTH 17.3 % (11.5-14.0); SEGMENTED NEUTROPHILS % (AUTO) 63.5 % (42-78); WHITE BLOOD COUNT 6.8 10^3/uL (4.0-10.5)
[2016-09-22 10:23] LABS: APPEARANCE,URINE CLEAR; BILIRUBIN,URINE NEGATIVE (NEGATIVE); GLUCOSE, URINE NEGATIVE (NEGATIVE); KETONES,URINE NEGATIVE (NEGATIVE); LEUKOCYTE ESTERASE,URINE NEGATIVE (NEGATIVE); NITRITE,URINE NEGATIVE (NEGATIVE); PROTEIN,URINE NEGATIVE (NEGATIVE); UROBILINOGEN,URINE NEGATIVE mg/dL (<2.0)
[2016-09-22 10:41] LABS: ANION GAP 15 (5-19); BLOOD UREA NITROGEN 18 mg/dL (7-20); CALCIUM 9.8 mg/dL (8.4-10.2); CARBON DIOXIDE 22 mmol/L (22-30); CHLORIDE 107 mmol/L (98-107); CREATININE RESULT 0.97 mg/dL (0.52-1.25); GLUCOSE 111 mg/dL (75-110); POTASSIUM 4.3 mmol/L (3.6-5.0); SODIUM 144.3 mmol/L (137-145)
[~2016-09-29 05:58] MED LIST: CEFAZOLIN 2 GM/D5W RTU 2 GM/50 ML RTUPB IV PRN; LACTATED RINGERS 1000 ML IV PRN; LIDOCAINE 0.5% INJ-PF (5 MG/ML) 50 ML SDV SUBCUT PRN
[2016-09-29] MEDS ORDERED: BUPIVACAINE HCL 0.5 % INJ/PF 30 ML SDV ONE (06:42)
[2016-09-29] MEDS ORDERED: LIDOCAINE 1% INJ-PF (10 MG/ML) 30 ML SDV ONE (06:42)
[2016-09-29] MEDS ORDERED: MIDAZOLAM 2 MG/2 ML INJ ONE (07:57)
[2016-09-29] MEDS ORDERED: FENTANYL CITRATE INJ/PF 100 MCG/2 ML AMPUL ONE (07:57)
[2016-09-29] MEDS ORDERED: PROPOFOL INJ 200 MG/20 ML VIAL IV ONE (07:58)
[2016-09-29] MEDS ORDERED: DEXMEDETOMIDINE INJ 80 MCG/20 ML VIAL IV ONE (07:58)
--- NOTE | 2016-09-29 08:31 | Operative Report ---
Operative Report DATE OF SURGERY: 09/29/16 PREOPERATIVE DIAGNOSIS: Right Ring Trigger Finger POSTOPERATIVE DIAGNOSIS: Same OPERATION: Right Ring A1 Silver Release SURGEON: SHAD HODGES ANESTHESIA: LMAC COMPLICATIONS: None ESTIMATED BLOOD LOSS: Minimal PROCEDURE: Indication for above procedure: 60-year-old female who has diagnosis of trigger finger. Patient complains of catching and locking. We attempted conservative measures without resolution of her symptoms at that point we discussed treatment options including operative versus nonoperative intervention. Risks and benefits were explained to the patient, patient verbalized understanding and consented for the procedure. Procedure In Detail: Patient was seen and evaluated in the preoperative holding area. The RIGHT upper extremity was initialized and marked. Patient received 2g of Ancef IV for bacterial prophylaxis. Patient was taken back to the operative room where transferred to the operative table. Once they were adequately anesthetized a nonsterile tourniquet was placed on the upper extremity. A surgical team debriefing was performed ensuring all instrumentation was available, the surgical procedure was discussed with possible concerns reviewed. A digital block was performed utilizing 10 mL 50:50 mixture of 0.5% Marcaine and 1% lidocaine without epinephrine. The upper extremity was prepped with chlorhexidine and alcohol and draped in a sterile fashion. A timeout was done identifying correct patient, procedure and extremity everyone in attendance agree with this and verbalized no concerns. The extremity was exsanguinated the tourniquet was inflated to 200 mmHg. Longitudinal skin incision was made centered over the A1 silver of the ring finger. The radial and ulnar neurovascular bundles were identified and retracted from the wound. The A1 silver was identified and incised. The A1 silver was released to the level of the A2 silver but not through the A2 silver. The palmar aponeurotic silver was released proximal to the A1 silver. Patient was then awoken from MAC anesthesia and made a full milk condenser there is no evidence of residual triggering or locking. The wound was then copiously irrigated with normal saline. Skin was closed with interrupted 4-0 nylon suture. Wound was dressed with Xeroform and a soft dressing. Sponge counts, instrument counts, needle counts counts were correct. Patient was then awoken from anesthesia. Transferred from the operating room table to the operating room stretcher. There was no intraoperative complications patient tolerated procedure well stable to PACU. Postoperative plan: Patient will follow-up as scheduled for wound check. They will call with any questions or concerns.
--- NOTE | 2016-09-29 08:31 | PDOC DISCHARGE SUMMARY ---
Discharge Summary (SDC) - Discharge Final Diagnosis: Right Ring Trigger Finger Date of Surgery: 09/29/16 Discharge Date: 09/29/16 Condition: Good Treatment or Instructions: Schedule Follow Up w/ Dr. Naseem Escobedo @ [facility] to be seen in 10-14 days or as scheduled [place]: [place]: [place]: May remove dressing on postop day #3, keep incision covered and dry. Ice and elevate May begin finger range of motion attempting to make full fist. Stool softener of choice when on pain medication. Prescriptions: Hydrocodone/Acetaminophen [[place] 5-325 mg Tablet] 1 tab PO Q6 PRN #15 tablet PRN Reason: Discharge Diet: As Tolerated Respiratory Treatments at Home: Deep Breathing/Coughing Discharge Activity: No Lifting Over 10 Pounds, No Lifting/Push/Pulling Report the Following to Your Physician Immediately: Fever over 101 Degrees, Unusual Bleeding, Redness, Swelling, Warmth, Increased Soreness
[2016-09-29] MEDS ORDERED: ONDANSETRON HCL INJ/PF 4 MG/2 ML SDV IV PRN (08:32)
[2016-09-29] MEDS ORDERED: HYDROCODONE/ACETAMINOPHEN 5-325 MG TABLET PO PRN (08:32)
[2016-09-29 11:26] VITALS: BP 128/81
[2016-09-29] MEDS ORDERED: GLYCOPYRROLATE INJ 0.4 MG/2 ML VIAL ONE (12:37)
[2016-09-29] MEDS ORDERED: ONDANSETRON HCL INJ/PF 4 MG/2 ML SDV ONE (12:37)
[2016-09-29] MEDS ORDERED: METOCLOPRAMIDE HCL INJ/PF 10 MG/2 ML SDV ONE (12:37)
== END 2016-09-29 10:50 | disposition home or self-care (01) ==
LOC: OROUT 05:58
PROVIDERS: ATTEND Orthopaedic Surgery
PROC: 0LN70ZZ Release Right Hand Tendon, Open Approach (ICD-10-PCS; principal; 2016-09-29 08:00)
DX: M65.341 Trigger finger, right ring finger (principal); M79.644 Pain in right finger(s); E11.9 Type 2 diabetes mellitus without complications; E78.00 Pure hypercholesterolemia, unspecified; I10 Essential (primary) hypertension; J44.9 Chronic obstructive pulmonary disease, unspecified; G43.909 Migraine, unspecified, not intractable, without status migrainosus; Z79.51 Long term (current) use of inhaled steroids; Z79.899 Other long term (current) drug therapy; Z87.891 Personal history of nicotine dependence
CPT/HCPCS: 93005; 36415; 82962; 85025; 80048; 81001; 93010; 26055; J2250; J3010; J3490 ×2; J2765; J2405; J2704; J0690; A9270; 1810

== ENCOUNTER → 2016-11-09 | Outpatient (CLI) | payer MEDICARE, MEDICAID ==
[2016-11-09 12:49] LABS: ABSOLUTE BASOPHILS # (AUTO) 0.1 10^3/uL (0.0-0.2); ABSOLUTE EOSINOPHILS # (AUTO) 0.1 10^3/uL (0.0-0.6); ABSOLUTE LYMPHOCYTES (AUTO) 1.4 10^3/uL (0.5-4.7); ABSOLUTE MONOCYTES (AUTO) 0.5 10^3/uL (0.1-1.4); ABSOLUTE NEUT (AUTO) 4.4 10^3/uL (1.7-8.2); BASOPHILS % (AUTO) 0.8 % (0-2); EOSINOPHILS % (AUTO) 1.5 % (0-6); HEMATOCRIT 33.2 % (36.0-47.0); HEMOGLOBIN 10.8 g/dL (12.0-15.5); HGB HCT DIFFERENCE -0.8; LYMPHOCYTES % (AUTO) 21.6 % (13-45); MEAN CORPUSCULAR HEMOGLOBIN 30.5 pg (27.0-33.4); MEAN CORPUSCULAR HGB CONC 32.6 g/dL (32.0-36.0); MEAN CORPUSCULAR VOLUME 94 fl (80-97); MONOCYTES % (AUTO) 7.1 % (3-13); RED BLOOD COUNT 3.54 10^6/uL (3.72-5.28); RED CELL DISTRIBUTION WIDTH 17.6 % (11.5-14.0); WHITE BLOOD COUNT 6.4 10^3/uL (4.0-10.5)
[2016-11-09 13:35] LABS: ERYTHROCYTE SEDIMENTATION RATE 17 mm/hr (0-30)
== END ==
LOC: OD 11:28
PROVIDERS: ATTEND Orthopaedic Surgery
DX: M79.641 Pain in right hand (principal)
CPT/HCPCS: 36415; 85025; 85652; 86038; 86140; 86200; 86430

== ENCOUNTER 2016-11-10 13:55 | Inpatient (IN) | payer MEDICARE, MEDICAID ==
[2016-11-10] MEDS ORDERED: ASPIRIN 325 MG TABLET PO ONE (14:34)
--- NOTE | 2016-11-10 14:35 | ER Document Report ---
ED Medical Screen (RME) - General Chief Complaint: Chest Tightness Stated Complaint: CHEST TIGHNESS Time Seen by Provider: 11/10/16 14:34 Information source: Patient Notes: 71-year-old female with past medical history of high blood pressure on pulmonary fibrosis with 1 week of some coughing, anterior intermittent nonradiating chest pressure, without fevers, vomiting, calf pain, or leg swelling. Patient is on home oxygen at baseline. TRAVEL OUTSIDE OF THE [place] IN LAST 30 DAYS: No - Related Data Allergies/Adverse Reactions: No Known Allergies Allergy (Verified 11/10/16 14:10) Past Medical History - Past Medical History Cardiac Medical History: Reports: Hx Hypercholesterolemia, Hx Hypertension Denies: Hx Coronary Artery Disease, Hx Heart Attack Pulmonary Medical History: Reports: Hx COPD - PULMONARY FIBROSIS, Hx Pneumonia Denies: Hx Asthma, Hx Bronchitis Neurological Medical History: Denies: Hx Cerebrovascular Accident, Hx Seizures Endocrine Medical History: Reports: Hx Diabetes Mellitus Type 2 Renal/ Medical History: Denies: Hx Peritoneal Dialysis Musculoskeltal Medical History: Denies Hx Arthritis Past Surgical History: Reports: Hx Cholecystectomy, Hx Hysterectomy - Immunizations Hx Diphtheria, Pertussis, Tetanus Vaccination: Yes Physical Exam - Vital signs Vitals: Temp Pulse Resp BP Pulse Ox 98.0 F 92 18 142/84 H 92 11/10/16 14:10 11/10/16 14:10 11/10/16 14:10 11/10/16 14:10 11/10/16 14:10 Course - Vital Signs Vital signs: Temp Pulse Resp BP Pulse Ox 98.0 F 92 18 142/84 H 92 11/10/16 14:10 11/10/16 14:10 11/10/16 14:10 11/10/16 14:10 11/10/16 14:10
[2016-11-10 16:15] LABS: ABSOLUTE BASOPHILS # (AUTO) 0.1 10^3/uL (0.0-0.2); ABSOLUTE EOSINOPHILS # (AUTO) 0.1 10^3/uL (0.0-0.6); ABSOLUTE LYMPHOCYTES (AUTO) 1.4 10^3/uL (0.5-4.7); ABSOLUTE MONOCYTES (AUTO) 0.5 10^3/uL (0.1-1.4); ABSOLUTE NEUT (AUTO) 4.4 10^3/uL (1.7-8.2); BASOPHILS % (AUTO) 0.8 % (0-2); EOSINOPHILS % (AUTO) 1.3 % (0-6); HEMATOCRIT 32.1 % (36.0-47.0); HEMOGLOBIN 10.6 g/dL (12.0-15.5); HGB HCT DIFFERENCE -0.3; LYMPHOCYTES % (AUTO) 21.6 % (13-45); MEAN CORPUSCULAR HEMOGLOBIN 30.6 pg (27.0-33.4); MEAN CORPUSCULAR HGB CONC 32.8 g/dL (32.0-36.0); MEAN CORPUSCULAR VOLUME 93 fl (80-97); MONOCYTES % (AUTO) 8.4 % (3-13); RED BLOOD COUNT 3.45 10^6/uL (3.72-5.28); SEGMENTED NEUTROPHILS % (AUTO) 67.9 % (42-78); WHITE BLOOD COUNT 6.5 10^3/uL (4.0-10.5)
[2016-11-10 16:37] LABS: ANION GAP 14 (5-19); BLOOD UREA NITROGEN 20 mg/dL (7-20); CALCIUM 9.2 mg/dL (8.4-10.2); CARBON DIOXIDE 21 mmol/L (22-30); CHLORIDE 107 mmol/L (98-107); CREATININE RESULT 1.18 mg/dL (0.52-1.25); GLUCOSE 82 mg/dL (75-110); POTASSIUM 3.9 mmol/L (3.6-5.0); SODIUM 141.7 mmol/L (137-145)
--- NOTE | 2016-11-10 16:45 | ER Document Report ---
ED Respiratory Problem - General Mode of Arrival: Ambulatory Information source: Patient TRAVEL OUTSIDE OF THE [place] IN LAST 30 DAYS: No <DENA WEST - Last Filed: 11/10/16 22:25> <KAILEY MORELOS - Last Filed: 11/11/16 00:04> - General Chief Complaint: Chest Tightness Stated Complaint: CHEST TIGHNESS Time Seen by Provider: 11/10/16 14:34 Notes: Patient is a 71-year-old female that presents to the emergency department today with complaints of chest tightness. Patient states she has a slight cough. Patient has a history of pulmonary fibrosis. (DENA WEST) - Related Data Allergies/Adverse Reactions: No Known Allergies Allergy (Verified 11/10/16 14:10) Past Medical History - General Information source: Patient - Social History Smoking Status: Never Smoker Cigarette use (# per day): No Chew tobacco use (# tins/day): No Frequency of alcohol use: Occasional Drug Abuse: None Lives with: Family Family History: Reviewed & Not Pertinent Patient has suicidal ideation: No Patient has homicidal ideation: No - Past Medical History Cardiac Medical History: Reports: Hx Hypercholesterolemia, Hx Hypertension Pulmonary Medical History: Reports: Hx COPD - PULMONARY FIBROSIS, Hx Pneumonia, Other - pulmonary fibrosis Endocrine Medical History: Reports: Hx Diabetes Mellitus Type 2 Musculoskeltal Medical History: Denies Hx Arthritis Past Surgical History: Reports: Hx Cholecystectomy, Hx Hysterectomy - Immunizations Hx Diphtheria, Pertussis, Tetanus Vaccination: Yes Hx Pneumococcal Vaccination: 04/26/14 <DENA WEST - Last Filed: 11/10/16 22:25> Review of Systems - Review of Systems Constitutional: No symptoms reported EENT: No symptoms reported Cardiovascular: See HPI, Chest pain - chest tightness Respiratory: See HPI, Cough Gastrointestinal: No symptoms reported Genitourinary: No symptoms reported Female Genitourinary: No symptoms reported Musculoskeletal: No symptoms reported Skin: No symptoms reported Hematologic/Lymphatic: No symptoms reported Neurological/Psychological: No symptoms reported -: Yes All other systems reviewed and negative <DENA WEST - Last Filed: 11/10/16 22:25> Physical Exam <DENA WEST - Last Filed: 11/10/16 22:25> <KAILEY MORELOS - Last Filed: 11/11/16 00:04> - Vital signs Vitals: Temp Pulse Resp BP Pulse Ox 98.0 F 92 18 142/84 H 92 11/10/16 14:10 11/10/16 14:10 11/10/16 14:10 11/10/16 14:10 11/10/16 14:10 - Notes Notes: Physical Exam: General: Alert, appears well. HEENT: Normocephalic. Atraumatic. PERRL. Extraocular movements intact. Oropharynx clear. Nasal cannula in place. Neck: Supple. Non-tender. Respiratory: No respiratory distress. Clear and equal breath sounds bilaterally. Cardiovascular: Regular rate and rhythm. Abdominal: Normal Inspection. Non-tender. No distension. Normal Bowel Sounds. Back: Non-tender. No deformity or step off. Extremities: Moves all four extremities. Upper extremities: Normal inspection. Normal ROM. Lower extremities: Normal inspection. No edema. Normal ROM. Neurological: Normal cognition. AAOx4. Normal speech. Psychological: Normal affect. Normal Mood. Skin: Warm. Dry. Normal color. (DENA WEST) Course - Laboratory Result Diagrams: 11/10/16 15:59 11/10/16 15:59 <DENA WEST - Last Filed: 11/10/16 22:25> - Laboratory Result Diagrams: 11/10/16 15:59 11/10/16 15:59 - Diagnostic Test Radiology reviewed: Reports reviewed - EKG Interpretation by [place] EKG shows normal: Sinus rhythm Rate: Normal Rhythm: NSR <KAILEY MORELOS - Last Filed: 11/11/16 00:04> - Re-evaluation Re-evalutation: Patient presents with chest tightness. Patient denies any coronary artery history. Patient has had no further chest pain in the emergency department. Troponin is not completely negative. Discussed with PMD. Will obvious patient to rule out coronary artery syndrome. No evidence for infection. Blood work within normal limits. Some T-wave flattening on EKG. Patient agrees with this plan. Stable time of admission. (KAILEY MORELOS) - Vital Signs Vital signs: Temp Pulse Resp BP Pulse Ox 98.0 F 92 17 166/102 H 93 11/10/16 14:10 11/10/16 14:10 11/10/16 21:01 11/10/16 21:01 11/10/16 21:01 - Laboratory Laboratory results interpreted by me: 11/10/16 11/10/16 15:59 15:59 RBC 3.45 L Hgb 10.6 L Hct 32.1 L RDW 17.0 H Carbon Dioxide 21 L Est GFR ( Amer) 55 L Est GFR (Non-Af Amer) 45 L Discharge <DENA WEST - Last Filed: 11/10/16 22:25> - Discharge Admitting Provider: [facility] Unit Admitted: Telemetry <KAILEY MORELOS - Last Filed: 11/11/16 00:04> - Discharge Clinical Impression: Chest pain Qualifiers: Chest pain type: unspecified Qualified Code(s): R07.9 - Chest pain, unspecified Condition: Stable Disposition: ADMITTED OBSERVATION Scribe Attestation: 11/11/16 00:04 I personally performed the services described in the documentation, reviewed and edited the documentation which was dictated to the scribe in my presence, and it accurately records my words and actions. (KAILEY MORELOS) Scribe Documentation - Scribe Written by Neidae:: Lalit Kumari, [id number] acting as scribe for :: Dorcas <DENA WEST - Last Filed: 11/10/16 22:25>
--- NOTE | 2016-11-10 17:09 | RADIOLOGY REPORT (SQ) ---
EXAM DESCRIPTION: CHEST PA/LAT COMPLETED DATE/TIME: 11/10/2016 4:47 pm REASON FOR STUDY: Cough, chest pain, history of pulmonary fibrosis COMPARISON: 06/25/2016 and 05/05/2010 EXAM PARAMETERS: NUMBER OF VIEWS: two views TECHNIQUE: Digital Frontal and Lateral radiographic views of the chest acquired. RADIATION DOSE: NA LIMITATIONS: none FINDINGS: LUNGS AND PLEURA: Moderate chronic interstitial changes right greater than left. No defin ite active infiltrate. No effusion. MEDIASTINUM AND HILAR STRUCTURES: No masses or contour abnormalities. HEART AND VASCULAR STRUCTURES: Moderate cardiomegaly. Vasculature within normal limits. BONES: No acute findings. HARDWARE: None in the chest. OTHER: No other significant finding. IMPRESSION: Cardiomegaly and moderate chronic interstitial changes. TECHNICAL DOCUMENTATION: JOB ID: [id number] All Rights Reserved
--- NOTE | 2016-11-10 19:52 | EKG REPORT ---
SEVERITY:- ABNORMAL ECG - SINUS RHYTHM LEFT ANTERIOR FASCICULAR BLOCK CONSIDER LEFT VENTRICULAR HYPERTROPHY NONSPECIFIC T ABNORMALITIES, INFERIOR LEADS : Confirmed by: Anant Watts 10-Nov-2016 19:51:41
[2016-11-11 03:21] LABS: ABSOLUTE BASOPHILS # (AUTO) 0.1 10^3/uL (0.0-0.2); ABSOLUTE EOSINOPHILS # (AUTO) 0.2 10^3/uL (0.0-0.6); ABSOLUTE LYMPHOCYTES (AUTO) 1.6 10^3/uL (0.5-4.7); ABSOLUTE MONOCYTES (AUTO) 0.5 10^3/uL (0.1-1.4); ABSOLUTE NEUT (AUTO) 4.2 10^3/uL (1.7-8.2); BASOPHILS % (AUTO) 0.8 % (0-2); EOSINOPHILS % (AUTO) 2.6 % (0-6); HEMATOCRIT 30.3 % (36.0-47.0); HEMOGLOBIN 9.9 g/dL (12.0-15.5); HGB HCT DIFFERENCE -0.6; LYMPHOCYTES % (AUTO) 24.2 % (13-45); MEAN CORPUSCULAR HEMOGLOBIN 30.4 pg (27.0-33.4); MEAN CORPUSCULAR HGB CONC 32.6 g/dL (32.0-36.0); MEAN CORPUSCULAR VOLUME 93 fl (80-97); MONOCYTES % (AUTO) 8.2 % (3-13); RED BLOOD COUNT 3.25 10^6/uL (3.72-5.28); RED CELL DISTRIBUTION WIDTH 17.3 % (11.5-14.0); SEGMENTED NEUTROPHILS % (AUTO) 64.2 % (42-78); WHITE BLOOD COUNT 6.5 10^3/uL (4.0-10.5)
[2016-11-11 03:35] LABS: ANION GAP 11 (5-19); BLOOD UREA NITROGEN 20 mg/dL (7-20); CALCIUM 8.8 mg/dL (8.4-10.2); CARBON DIOXIDE 22 mmol/L (22-30); CHLORIDE 108 mmol/L (98-107); CREATINE KINASE 47 U/L (30-135); CREATININE RESULT 1.06 mg/dL (0.52-1.25); GLUCOSE 99 mg/dL (75-110); POTASSIUM 3.7 mmol/L (3.6-5.0); SODIUM 140.9 mmol/L (137-145)
[2016-11-11 03:47] LABS: CREATINE KINASE MB 1.16 ng/mL (<4.55); TROPONIN I 0.024 ng/mL
[2016-11-11 09:19] LABS: CREATINE KINASE MB 1.02 ng/mL (<4.55); TROPONIN I 0.017 ng/mL
[2016-11-11] MEDS ORDERED: TRAMADOL HCL 50 MG TABLET PO PRN (12:35)
[2016-11-11] MEDS ORDERED: ALBUTEROL SULFATE HFA (90 MCG/PUFF) 200 PUFF/8.5 GM MDI IH PRN (14:52)
[2016-11-11] MEDS ORDERED: CYCLOBENZAPRINE HCL 10 MG TABLET PO PRN (14:52)
[2016-11-11] MEDS ORDERED: (PENDING PHARMACY ID) (Diltiazem Hcl [Cartia Xt] 180 MG) PO SCH (15:00)
--- NOTE | 2016-11-11 15:41 | RADIOLOGY REPORT (SQ) ---
EXAM DESCRIPTION: CT CHEST WITHOUT COMPLETED DATE/TIME: 11/11/2016 2:58 pm REASON FOR STUDY: chest tightness, sob J84.10 PULMONARY FIBROSIS, UNSPECIFIED COMPARISON: 09/10/2016 TECHNIQUE: CT scan performed of the chest without intravenous contrast. Images reviewed with lung, soft tissue and bone windows. Reconstructed coronal and sagittal MPR images reviewed. All images st ored on PACS. All CT scanners at this facility use dose modulation, iterative reconstruction, and/or weight based d osing when appropriate to reduce radiation dose to as low as reasonably achievable (ALARA). [facility]: Dose Right [facility]: CareDose [facility]: Dose Right [facility]: Teradose 4D [facility]: [email or web address] RADIATION DOSE: Up-to-date CT equipment and radiation dose reduction techniques were employed. CTDIv ol: 6.4 mGy. DLP: 244 mGy-cm. mGy. LIMITATIONS: No technical limitations. FINDINGS: LUNGS AND PLEURA: No masses, infiltrates, pneumothorax. No pleural effusions, calcificati ons. The previously described extensive chronic interstitial lung disease consistent with pulmonary fibrosis is again identified and appears stable. HILAR AND MEDIASTINAL STRUCTURES: The previously described suspected mediastinal and hilar adenopathy appears unchanged. A component of these findings may be related to prominent central pulmonary inocente sylvia related to pulmonary hypertension. HEART AND VASCULAR STRUCTURES: Previously described pericardial effusion appears unchanged. Vascular calcifications are again identified in the thoracic aorta and coronary arteries. UPPER ABDOMEN: No significant findings. Limited exam. THYROID AND OTHER SOFT TISSUES: No masses. No adenopathy. BONES: No significant finding. HARDWARE: None in the chest. OTHER: No other significant findings. IMPRESSION: No significant interval changes compared to the previous study. No acute changes. The previously described extensive chronic interstitial lung disease consistent with pulmonary fibrosis i s again identified and appears stable. Small pericardial effusion appears stable. Other findings as noted above TECHNICAL DOCUMENTATION: JOB ID: [id number] Quality ID # [id number]: Final reports with documentation of one or more dose reduction techniques (e.g., Au tomated exposure control, adjustment of the mA and/or kV according to patient size, use of iterative reconstruction technique) 2010 [employer]- All Rights Reserved
[2016-11-11] MEDS ORDERED: DILTIAZEM HCL 180 MG CAPSULE.CR PO ONE (16:00)
[2016-11-11 17:04] LABS: CREATINE KINASE MB 0.81 ng/mL (<4.55); TROPONIN I 0.016 ng/mL
[2016-11-11] MEDS: FLUTICASONE/SALMETEROL DISKUS 250-50 MCG/DOSE IH SCH (18:24)
--- NOTE | 2016-11-11 20:07 | PDOC H&P ---
History of Present Illness Admission Date/PCP: 11/11/16 02:30 CHIKI ESCOBEDO MD History of Present Illness: SEUN BETH is a 71 year old female, She came to emergency room for evaluation of chest pain, patient is well-known to me she has a history of severe pulmonary hypertension and chronic interstitial lung disease, idiopathic pulmonary fibrosis. She was seen in the office last week when she presented to the office with complaint of chest pain, the chest pain she has now is no different from the chest pain she had when I saw her in the office, the chest pain is probably related to the chronic lung disease, CT chest without contrast was obtained it shows the previously described extensive chronic interstitial pulmonary fibrosis appears stable, emergency room physician is recommending hospital admission Past Medical History Cardiac Medical History: Reports: Hyperlipidema, Hypertension Pulmonary Medical History: Reports: Chronic Obstructive Pulmonary Disease (COPD ) - PULMONARY FIBROSIS, Pneumonia, Other - pulmonary fibrosis Neurological Medical History: Denies: Seizures Endocrine Medical History: Reports: Diabetes Mellitus Type 2 Musculoskeltal Medical History: Denies: Arthritis Hematology: Denies: Anemia Past Surgical History Past Surgical History: Reports: Cholecystectomy, Hysterectomy Social History Lives with: Family Smoking Status: Former Smoker Frequency of Alcohol Use: None Hx Recreational Drug Use: No Drugs: None Hx Prescription Drug Abuse: No Family History Family History: Reviewed & Not Pertinent Parental Family History Reviewed: Yes Children Family History Reviewed: Yes Sibling(s) Family History Reviewed.: Yes Medication/Allergy Home Medications: Albuterol Sulfate [Albuterol Sulfate 2.5mg/3 mL] 1 vial IH Q6HP PRN 11/11/16 Albuterol Sulfate [Proair Hfa Inhalation Aerosol 8.5 gm Mdi] 2 puff IH Q6HP PRN 11/11/16 Atorvastatin Calcium [Lipitor 40 mg Tablet] 40 mg PO QHS 11/11/16 Cyclobenzaprine HCl [Flexeril 10 mg Tablet] 10 mg PO Q12HP PRN 11/11/16 Diltiazem HCl [Cartia Xt] 180 mg PO DAILY 11/11/16 Fluticasone/Salmeterol [Advair 250-50 Diskus 28 dose] 1 inh IH Q12 11/11/16 Latanoprost [Xalatan 0.005% Oph Soln 2.5 ml] 1 drop OD QHS 11/11/16 Tramadol HCl [Ultram 50 mg Tablet] 50 mg PO Q6HP PRN 11/11/16 Allergies/Adverse Reactions: No Known Allergies Allergy (Verified 11/10/16 14:10) Review of Systems Constitutional: ABSENT: chills, fever(s), headache(s), weight gain, weight loss Eyes: ABSENT: visual disturbances Ears: ABSENT: hearing changes Cardiovascular: PRESENT: chest pain Respiratory: PRESENT: dyspnea Gastrointestinal: ABSENT: abdominal pain, constipation, diarrhea, hematemesis, hematochezia, nausea, vomiting Genitourinary: ABSENT: dysuria, hematuria Musculoskeletal: ABSENT: joint swelling Integumentary: ABSENT: rash, wounds Neurological: ABSENT: abnormal gait, abnormal speech, confusion, dizziness, focal weakness, syncope Psychiatric: ABSENT: anxiety, depression, homidical ideation, suicidal ideation Endocrine: ABSENT: cold intolerance, heat intolerance, menstrual abnormalities, polydipsia, polyuria Hematologic/Lymphatic: ABSENT: easy bleeding, easy bruising, lymphadenopathy Physical Exam Vital Signs: Temp Pulse Resp BP Pulse Ox 97.9 F 85 20 145/79 H 93 11/11/16 15:25 11/11/16 19:00 11/11/16 15:25 11/11/16 15:25 11/11/16 15:25 Intake & Output 11/10/16 11/11/16 11/12/16 06:59 06:59 06:59 Intake Total 200 1850 Balance 200 1850 General appearance: PRESENT: no acute distress, well-developed, well-nourished Head exam: PRESENT: atraumatic, normocephalic Eye exam: PRESENT: conjunctiva pink, EOMI, PERRLA Ear exam: PRESENT: normal external ear exam Mouth exam: PRESENT: moist, tongue midline Neck exam: PRESENT: full ROM Respiratory exam: PRESENT: rales Cardiovascular exam: PRESENT: RRR, +S1, +S2 Vascular exam: PRESENT: normal capillary refill GI/Abdominal exam: PRESENT: normal bowel sounds, soft Rectal exam: PRESENT: deferred Neurological exam: PRESENT: alert, awake, oriented to person, oriented to place , oriented to time, oriented to situation, CN II-XII grossly intact. ABSENT: motor sensory deficit Psychiatric exam: PRESENT: appropriate affect, normal mood Skin exam: PRESENT: dry, intact, warm Results Laboratory Results: 11/11/16 02:59 11/11/16 02:59 11/11/16 11/11/16 02:59 02:59 WBC 6.5 RBC 3.25 L Hgb 9.9 L Hct 30.3 L MCV 93 MCH 30.4 MCHC 32.6 RDW 17.3 H Plt Count 201 Seg Neutrophils % 64.2 Lymphocytes % 24.2 Monocytes % 8.2 Eosinophils % 2.6 Basophils % 0.8 Absolute Neutrophils 4.2 Absolute Lymphocytes 1.6 Absolute Monocytes 0.5 Absolute Eosinophils 0.2 Absolute Basophils 0.1 Sodium 140.9 Potassium 3.7 Chloride 108 H Carbon Dioxide 22 Anion Gap 11 BUN 20 Creatinine 1.06 Est GFR ( Amer) > 60 Est GFR (Non-Af Amer) 51 L Glucose 99 Calcium 8.8 11/11/16 11/11/16 11/11/16 02:59 02:59 08:30 Creatine Kinase 47 47 CK-MB (CK-2) 1.16 Troponin I 0.024 11/11/16 11/11/16 11/11/16 08:30 16:05 16:05 Creatine Kinase 33 CK-MB (CK-2) 1.02 0.81 Troponin I 0.017 0.016 Impressions: Chest X-Ray 11/10/16 14:34 IMPRESSION: Cardiomegaly and moderate chronic interstitial changes. Chest CT 11/11/16 00:00 IMPRESSION: No significant interval changes compared to the previous study. No acute changes. The previously described extensive chronic interstitial lung disease consistent with pulmonary fibrosis is again identified and appears stable. Small pericardial effusion appears stable. Other findings as noted above Assessment & Plan - Diagnosis (1) Chest pain Qualifiers: Chest pain type: unspecified Qualified Code(s): R07.9 - Chest pain, unspecified Is this a current diagnosis for this admission?: YesPlan: Chest pain is probably related to chronic interstitial lung disease (2) Idiopathic pulmonary fibrosis Is this a current diagnosis for this admission?: Yes (3) Type 2 diabetes mellitus Qualifiers: Diabetes mellitus complication status: without complication Diabetes mellitus ferry terminal supervisor insulin use: without jail use Qualified Code(s): E11.9 - Type 2 diabetes mellitus without complications Is this a current diagnosis for this admission?: Yes
[2016-11-11] MEDS: ATORVASTATIN CALCIUM 40 MG TABLET PO SCH (21:43)
[2016-11-11] MEDS: LATANOPROST 0.005% OPH SOLN 2.5 ML OD SCH (21:50)
[2016-11-12] MEDS: FLUTICASONE/SALMETEROL DISKUS 250-50 MCG/DOSE IH SCH ×2 (06:05→18:03)
[2016-11-12] MEDS: DILTIAZEM HCL 180 MG CAPSULE.CR PO SCH (09:49)
[2016-11-12] MEDS: IPRATROPIUM/ALBUTEROL 0.5-2.5 MG/3 ML AMPUL NEB PRN ×2 (13:48→20:05)
[2016-11-12] MEDS: TRAMADOL HCL 50 MG TABLET PO PRN (20:01)
--- NOTE | 2016-11-12 21:32 | PDOC PROGRESS REPORT ---
Subjective Progress Note for:: 11/12/16 Subjective:: She has severe pulmonary fibrosis with associated pulmonary hypertension, she is obviously symptomatic with shortness of breath consultation will be obtained from pulmonary before discharge. Physical Exam Vital Signs: Temp Pulse Resp BP Pulse Ox 98.1 F 89 20 158/82 H 89 L 11/12/16 15:10 11/12/16 19:00 11/12/16 15:10 11/12/16 15:10 11/12/16 15:10 Intake & Output 11/11/16 11/12/16 11/13/16 06:59 06:59 06:59 Intake Total 200 2750 1740 Balance 200 2750 1740 General appearance: PRESENT: mild distress Eye exam: PRESENT: PERRLA Respiratory exam: PRESENT: rales Cardiovascular exam: PRESENT: +S1, +S2 GI/Abdominal exam: PRESENT: soft Neurological exam: PRESENT: alert Results Laboratory Results: 11/11/16 02:59 11/11/16 02:59 11/11/16 11/11/16 11/11/16 02:59 02:59 08:30 Creatine Kinase 47 47 CK-MB (CK-2) 1.16 Troponin I 0.024 11/11/16 11/11/16 11/11/16 08:30 16:05 16:05 Creatine Kinase 33 CK-MB (CK-2) 1.02 0.81 Troponin I 0.017 0.016 Impressions: Chest X-Ray 11/10/16 14:34 IMPRESSION: Cardiomegaly and moderate chronic interstitial changes. Chest CT 11/11/16 00:00 IMPRESSION: No significant interval changes compared to the previous study. No acute changes. The previously described extensive chronic interstitial lung disease consistent with pulmonary fibrosis is again identified and appears stable. Small pericardial effusion appears stable. Other findings as noted above Assessment & Plan - Diagnosis (1) Chest pain Qualifiers: Chest pain type: unspecified Qualified Code(s): R07.9 - Chest pain, unspecified Is this a current diagnosis for this admission?: Yes (2) Idiopathic pulmonary fibrosis Is this a current diagnosis for this admission?: YesPlan: She is very symptomatic despite being on oxygen I spoke to Dr. Watts, pulmonary provider relations consultant about this patient. (3) Type 2 diabetes mellitus Qualifiers: Diabetes mellitus complication status: without complication Diabetes mellitus half-way insulin use: without medical terminologist use Qualified Code(s): E11.9 - Type 2 diabetes mellitus without complications Is this a current diagnosis for this admission?: Yes
[2016-11-12] MEDS: LANSOPRAZOLE 30 MG TAB.RAP.DR PO SCH (22:10)
[2016-11-12] MEDS: LATANOPROST 0.005% OPH SOLN 2.5 ML OD SCH (22:10)
[2016-11-12] MEDS: ATORVASTATIN CALCIUM 40 MG TABLET PO SCH (22:10)
--- NOTE | 2016-11-12 23:39 | CONSULTATION REPORT E ---
Consultation Report NAME: SEUN BETH : 1945 AGE: 71Y DATE: 11/12/2016 529 A TO: PIERCE WYMAN M.D. FROM: CHIKI ESCOBEDO M.D. Requesting Physician HISTORY OF PRESENT ILLNESS: Patient is a 71-year-old female with past medical history of interstitial lung disease, pulmonary fibrosis, admitted because her daughter noted that she is increasingly coughing, possibly may have seizure. The patient claimed that she has been coughing more than usual but is nonproductive. She denies any fever or chills. Complained of some blood streaked phlegm because of the severe coughing episodes but currently does not have any hemoptysis. Complained of mild pleuritic chest pain left side. CT scan was done yesterday on admission showing no pleural effusion or no significant change in the pulmonary parenchymal findings compared to the previous CAT scan. No nausea or vomiting. PAST MEDICAL HISTORY: History of hyperlipidemia and pulmonary hypertension, history of COPD, pulmonary fibrosis, pneumonia, asthma, seizures, has some joint problems involving the fingers on and off with joint pains, anemia. PAST SURGICAL HISTORY: Cholecystectomy and hysterectomy. SOCIAL HISTORY: Patient lives with family. Used to smoke heavily before. Denies any alcohol abuse. HOME MEDICATIONS: 1. Albuterol inhaler solution. 2. Flexeril. 3. Cardizem. 4. Advair. 5. Tramadol. ALLERGIES: No known drug allergies. 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 REVIEW OF SYSTEMS: CONSTITUTIONAL: No fever or chills. EYES: No blurry vision. EARS/NOSE/MOUTH/THROAT: No ear drainage. No nasal discharge. HEAD/NECK: No scalp tenderness. Neck supple. CHEST/LUNGS: No wheezing, no rhonchi, no coarse crackles. CARDIOVASCULAR: S1,S2 distinct. Normal rhythm and rate. ABDOMEN: Flabby, positive bowel sounds, soft, nontender and nondistended. EXTREMITIES: No joint swelling, no cellulitis. Some joint pains involving the hands. PHYSICAL EXAMINATION: GENERAL: Patient is awake, alert and oriented x3. VITAL SIGNS: Blood pressure of 158/82. Temperature 98.1 with a T-max of 98.9. Saturation is 92% on 2 L. Heart rate is 89 beats per minute. EYES: No jaundice or pallor. EARS/NOSE/MOUTH/THROAT: No ear drainage noted. No nasal discharge. HEAD/NECK: No scalp tenderness. Neck is supple. CHEST/LUNGS: No wheezing. No rhonchi. No coarse crackles. CARDIOVASCULAR: S1, S2 distinct. Normal rate and regular rhythm. ABDOMEN: Flabby. Positive bowel sounds. Soft, nondistended, nontender. EXTREMITIES: No joint swelling or cellulitis. LABORATORY: CBC done yesterday showed a white count of 6.5, hemoglobin 9.9, hematocrit 30.3, platelet count 201,000. Chemistries showed yesterday, sodium 140.9, potassium 3.7, chloride 108, CO2 22, BUN is 20, creatinine 1.06, glucose is 99, calcium is 8.8. Troponin is normal. CK-MB is normal, kinase is 47. Chest CT scan was performed yesterday showing infiltrate primarily in the right upper lobe, some infiltrates in the left upper lobe, ground-glass appearance of the infiltrates and bibasilar infiltrates. Some honeycombing both in the right upper lobe suggesting an IPF pattern, but there are some signs of NSIP pattern or EIP pattern on both lungs. The chest CT scan done yesterday the findings were reported as the same or stable when compared to the CAT scan on September 10, 2016. ASSESSMENT: 1. Interstitial lung disease. Cannot completely exclude connective tissue diseases. Idiopathic pulmonary fibrosis is likely but cannot be completely excluded at this time. Honeycombing patterns in right upper lobe is less likely in IPF. Chronic aspiration of gastric contents due to severe GERD is more likelyin this patient as etiology. Chronic exposure to chemicals at work can present the same chest CT scan findings but the lung parenchymal infiltrate would be more diffuse and not localized. 2. GERD, severe, and probably causing aspiration pneumonitis. 3. Bronchial asthma currently stable and not in acute exacerbation. 4. COPD. 5. History of occupational exposure to cleaning chemicals. PLAN/RECOMMENDATION: 1. Will start the patient on omeprazole 40 mg capsule p.o. b.i.d. 2. Increase the dose of Advair 500 Diskhaler 1 puff b.i.d. 3. Will send labs for connective tissue disease workup, Joann-1 antibody, creatine kinase, aldolase, SSA and SSB, Scl70, p-ANCA, c-ANCA, ESR, C-reactive protein. 4. Will start the patient on Spiriva 1 capsule to be inhaled once daily, to have first dose tonight. 5. Discussed with patient about a possible surgical lung biopsy in the future, pending results of the connective tissue disorder workup. 6. Flexible bronchoscopy with transbronchial lung biopsy would have limited value in making a diagnosis in patients with interstitial lung disease. 7. Will discuss this further diagnosis workup with patient once the patient is discharged in the pulmonary clinic. DICTATING PHYSICIAN: PIERCE WYMAN MD,JENNIFER,MPH [id number] PHY#: [id number] ID: [id number] JOB#: [id number] ACCT: [id number] cc:PIERCE WYMAN M.D. > MTDD
[2016-11-13] MEDS ORDERED: TIOTROPIUM BROMIDE DPI 5 CAP/KIT (18 MCG/CAP) IH ONE (00:30)
[2016-11-13] MEDS: IPRATROPIUM/ALBUTEROL 0.5-2.5 MG/3 ML AMPUL NEB PRN (04:25)
[2016-11-13 07:04] LABS: C-REACTIVE PROTEIN 13.4 mg/L (<10.0)
[2016-11-13] MEDS: DILTIAZEM HCL 180 MG CAPSULE.CR PO SCH (09:20)
[2016-11-13] MEDS: LANSOPRAZOLE 30 MG TAB.RAP.DR PO SCH ×2 (09:21→21:41)
[2016-11-13] MEDS: FLUTICASONE/SALMETEROL DISKUS 500-50 MCG/DOSE IH SCH ×2 (09:21→17:52)
[2016-11-13] MEDS: TIOTROPIUM BROMIDE DPI 5 CAP/KIT (18 MCG/CAP) IH SCH (09:21)
[2016-11-13 20:33] LABS: ARTERIAL BLOOD BASE EXCESS 3.2 mmol/L; ARTERIAL BLOOD O2 SATURATION 89.9 % (94-98)
[2016-11-13] MEDS: ATORVASTATIN CALCIUM 40 MG TABLET PO SCH (21:41)
[2016-11-13] MEDS: LATANOPROST 0.005% OPH SOLN 2.5 ML OD SCH (21:41)
--- NOTE | 2016-11-13 22:05 | PDOC PROGRESS REPORT ---
Subjective Progress Note for:: 11/13/16 Subjective:: Patient is very symptomatic severely hypoxemic, ABG on FiO2 of 4 L, PO2 51.3 pH 7.51 PCO2 33 bicarbonate 25 there is severe hypoxemia with respiratory alkalosis , she is hyperventilating because of hypoxemia she has severe pulmonary fibrosis , she was seen yesterday by the lung specialist, she is not in any position to be discharged home. She was admitted yesterday initially for observation her condition is progressively getting worse Physical Exam Vital Signs: Temp Pulse Resp BP Pulse Ox 98.2 F 98 22 H 146/66 H 90 L 11/13/16 19:44 11/13/16 19:44 11/13/16 19:44 11/13/16 19:44 11/13/16 19:44 Intake & Output 11/12/16 11/13/16 11/14/16 06:59 06:59 06:59 Intake Total 2750 2160 1050 Balance 2750 2160 1050 Weight 75.2 kg General appearance: PRESENT: severe distress Head exam: PRESENT: atraumatic, normocephalic Ear exam: PRESENT: normal external ear exam Mouth exam: PRESENT: moist, tongue midline Neck exam: PRESENT: full ROM. ABSENT: carotid bruit, JVD, lymphadenopathy, thyromegaly Respiratory exam: PRESENT: accessory muscle use, rales Cardiovascular exam: PRESENT: RRR, +S1, +S2 Pulses: PRESENT: normal dorsalis pedis pul, +2 pedal pulses bilateral Vascular exam: PRESENT: normal capillary refill GI/Abdominal exam: PRESENT: normal bowel sounds, soft Rectal exam: PRESENT: deferred Neurological exam: PRESENT: alert, CN II-XII grossly intact. ABSENT: motor sensory deficit Psychiatric exam: PRESENT: appropriate affect, normal mood Skin exam: PRESENT: dry, intact, warm. ABSENT: cyanosis, rash Results Laboratory Results: 11/11/16 02:59 11/11/16 02:59 11/13/16 11/13/16 06:29 20:06 Carbonic Acid 0.99 L HCO3/H2CO3 Ratio 26:1 ABG pH 7.51 H ABG pCO2 33.0 L ABG pO2 51.3 L ABG HCO3 25.8 ABG O2 Saturation 89.9 L ABG Base Excess 3.2 FiO2 4L C-Reactive Protein 13.4 H 11/11/16 11/11/1611/11/17 02:59 02:59 08:30 Creatine Kinase 47 47 CK-MB (CK-2) 1.16 Troponin I 0.024 11/11/16 11/11/16 11/11/16 08:30 16:05 16:05 Creatine Kinase 33 CK-MB (CK-2) 1.02 0.81 Troponin I 0.017 0.016 11/13/16 06:29 Creatine Kinase 42 CK-MB (CK-2) Troponin I Impressions: Chest X-Ray 11/10/16 14:34 IMPRESSION: Cardiomegaly and moderate chronic interstitial changes. Chest CT 11/11/16 00:00 IMPRESSION: No significant interval changes compared to the previous study. No acute changes. The previously described extensive chronic interstitial lung disease consistent with pulmonary fibrosis is again identified and appears stable. Small pericardial effusion appears stable. Other findings as noted above Assessment & Plan - Diagnosis (1) Chest pain Qualifiers: Chest pain type: unspecified Qualified Code(s): R07.9 - Chest pain, unspecified Is this a current diagnosis for this admission?: Yes (2) Idiopathic pulmonary fibrosis Is this a current diagnosis for this admission?: Yes (3) Type 2 diabetes mellitus Qualifiers: Diabetes mellitus complication status: without complication Diabetes mellitus termite control technician insulin use: without termite control technician use Qualified Code(s): E11.9 - Type 2 diabetes mellitus without complications Is this a current diagnosis for this admission?: Yes (4) Acute hypoxemic respiratory failure Is this a current diagnosis for this admission?: YesPlan: She has severe hypoxemic respiratory failure probably due to idiopathic pulmonary fibrosis the CAT scan that was done yesterday did not show any superimposed pneumonia, we will apply BiPAP machine to support patient is breathing
[2016-11-14] MEDS: DILTIAZEM HCL 180 MG CAPSULE.CR PO SCH (09:46)
[2016-11-14] MEDS: FLUTICASONE/SALMETEROL DISKUS 500-50 MCG/DOSE IH SCH ×2 (09:47→17:39)
[2016-11-14] MEDS: LANSOPRAZOLE 30 MG TAB.RAP.DR PO SCH ×2 (09:47→21:53)
[2016-11-14] MEDS: TIOTROPIUM BROMIDE DPI 5 CAP/KIT (18 MCG/CAP) IH SCH (09:48)
--- NOTE | 2016-11-14 14:51 | PDOC PROGRESS REPORT ---
Subjective Progress Note for:: 11/14/16 Subjective:: Yesterday she had severe hypoxemia, a non-invasive positive pressure ventilation with BiPAP was recommended but patient did not tolerate the device very well, she continues to be hypoxemic, she was seen by the internal communications writer, she is being evaluated for the connective tissue disease, auto antibody test was sent out. On auscultation of the chest she is not overly wheezing. Because of the hypoxemia could be due to interstitial lung disease or a superimposed pulmonary embolism, she be started on prednisone because of the interstitial lung disease CTA chest will be ordered to rule out pulmonary embolism as a possible etiology of the severe hypoxemia. Physical Exam Vital Signs: Temp Pulse Resp BP Pulse Ox 98.3 F 104 H 18 158/96 H 89 L 11/14/16 12:00 11/14/16 14:00 11/14/16 12:00 11/14/16 12:00 11/14/16 12:00 Intake & Output 11/13/16 11/14/16 11/15/16 06:59 06:59 06:59 Intake Total 2160 1410 Balance 2160 1410 Weight 75.2 kg General appearance: PRESENT: mild distress Eye exam: PRESENT: PERRLA Ear exam: PRESENT: normal external ear exam Mouth exam: PRESENT: moist, tongue midline Neck exam: PRESENT: full ROM Respiratory exam: PRESENT: rales Cardiovascular exam: PRESENT: RRR, +S1, +S2 Vascular exam: PRESENT: normal capillary refill GI/Abdominal exam: PRESENT: normal bowel sounds, soft Rectal exam: PRESENT: deferred Neurological exam: PRESENT: alert, CN II-XII grossly intact. ABSENT: motor sensory deficit Psychiatric exam: PRESENT: appropriate affect, normal mood. ABSENT: homicidal ideation, suicidal ideation Skin exam: PRESENT: dry, intact, warm. ABSENT: cyanosis, rash Results Laboratory Results: 11/11/16 02:59 11/11/16 02:59 11/13/16 20:06 Carbonic Acid 0.99 L HCO3/H2CO3 Ratio 26:1 ABG pH 7.51 H ABG pCO2 33.0 L ABG pO2 51.3 L ABG HCO3 25.8 ABG O2 Saturation 89.9 L ABG Base Excess 3.2 FiO2 4L 11/11/16 11/11/16 11/11/16 02:59 02:59 08:30 Creatine Kinase 47 47 CK-MB (CK-2) 1.16 Troponin I 0.024 11/11/16 11/11/16 11/11/16 08:30 16:05 16:05 Creatine Kinase 33 CK-MB (CK-2) 1.02 0.81 Troponin I 0.017 0.016 11/13/16 06:29 Creatine Kinase 42 CK-MB (CK-2) Troponin I Impressions: Chest X-Ray 11/10/16 14:34 IMPRESSION: Cardiomegaly and moderate chronic interstitial changes. Chest CT 11/11/16 00:00 IMPRESSION: No significant interval changes compared to the previous study. No acute changes. The previously described extensive chronic interstitial lung disease consistent with pulmonary fibrosis is again identified and appears stable. Small pericardial effusion appears stable. Other findings as noted above Assessment & Plan - Diagnosis (1) Chest pain Qualifiers: Chest pain type: unspecified Qualified Code(s): R07.9 - Chest pain, unspecified Is this a current diagnosis for this admission?: Yes (2) Idiopathic pulmonary fibrosis Is this a current diagnosis for this admission?: Yes (3) Type 2 diabetes mellitus Qualifiers: Diabetes mellitus complication status: without complication Diabetes mellitus intermediate card tender insulin use: without group home use Qualified Code(s): E11.9 - Type 2 diabetes mellitus without complications Is this a current diagnosis for this admission?: Yes (4) Acute hypoxemic respiratory failure Is this a current diagnosis for this admission?: YesPlan: The differential diagnosis include pulmonary embolism, progressive interstitial lung disease, CTA chest will be ordered to rule out pulmonary embolism, she be started on intravenous Solu-Medrol.
[2016-11-14] MEDS ORDERED: METHYLPREDNISOLONE INJ 125 MG/2 ML SDV IV ONE (15:15)
[2016-11-14] MEDS: LEVOFLOXACIN 750 MG/D5W RTU 750 MG/150 ML RTUPB IV SCH (15:28)
[2016-11-14] MEDS: NORMAL SALINE 1000 ML 1,000 ML IV PRN (15:28)
[2016-11-14 15:50] LABS: ABSOLUTE BASOPHILS # (AUTO) 0.1 10^3/uL (0.0-0.2); ABSOLUTE EOSINOPHILS # (AUTO) 0.2 10^3/uL (0.0-0.6); ABSOLUTE LYMPHOCYTES (AUTO) 1.2 10^3/uL (0.5-4.7); ABSOLUTE MONOCYTES (AUTO) 0.6 10^3/uL (0.1-1.4); ABSOLUTE NEUT (AUTO) 5.6 10^3/uL (1.7-8.2); EOSINOPHILS % (AUTO) 2.1 % (0-6); HEMATOCRIT 33.9 % (36.0-47.0); HEMOGLOBIN 11.3 g/dL (12.0-15.5); MEAN CORPUSCULAR HGB CONC 33.4 g/dL (32.0-36.0); MEAN CORPUSCULAR VOLUME 93 fl (80-97); MONOCYTES % (AUTO) 7.3 % (3-13); RED BLOOD COUNT 3.64 10^6/uL (3.72-5.28); RED CELL DISTRIBUTION WIDTH 16.3 % (11.5-14.0); SEGMENTED NEUTROPHILS % (AUTO) 73.6 % (42-78); WHITE BLOOD COUNT 7.7 10^3/uL (4.0-10.5)
[2016-11-14 16:06] LABS: ALANINE AMINOTRANSFERASE 30 U/L (9-52); ALBUMIN 3.7 g/dL (3.5-5.0); ALKALINE PHOSPHATASE 100 U/L (38-126); ANION GAP 9 (5-19); ASPARTATE AMINO TRANSFERASE 17 U/L (14-36); BILIRUBIN,DIRECT 0.2 mg/dL (0.0-0.4); BILIRUBIN,TOTAL 2.1 mg/dL (0.2-1.3); BLOOD UREA NITROGEN 14 mg/dL (7-20); CARBON DIOXIDE 27 mmol/L (22-30); CHLORIDE 103 mmol/L (98-107); CREATININE RESULT 0.86 mg/dL (0.52-1.25); GLUCOSE 101 mg/dL (75-110); POTASSIUM 4.1 mmol/L (3.6-5.0); TOTAL PROTEIN 6.6 g/dL (6.3-8.2)
--- NOTE | 2016-11-14 18:06 | RADIOLOGY REPORT (SQ) ---
EXAM DESCRIPTION: CTA CHEST COMPLETED DATE/TIME: 11/14/2016 5:45 pm REASON FOR STUDY: SEVERE HYPOXEMIA J84.10 PULMONARY FIBROSIS, UNSPECIFIED COMPARISON: Chest CT 11/11/2016, 09/10/2016, and 05/03/2016 TECHNIQUE: CT scan of the chest performed using helical scanning technique with dynamic intravenous contrast injection. Images reviewed with lung, soft tissue and bone windows. Reconstructed coronal and sagittal MPR images reviewed. Additional 3 dimensional post-processing performed to develop Maximal Intensity Projection images (PA P). All images stored on PACS. All CT scanners at this facility use dose modulation, iterative reconstruction, and/or weight based d osing when appropriate to reduce radiation dose to as low as reasonably achievable (ALARA). [facility]: Dose Right [facility]: CareDose [facility]: Dose Right [facility]: Teradose 4D [facility]: MuciMed CONTRAST TYPE AND DOSE: contrast/concentration: Isovue 370.00 mg/ml; Total Contrast Delivered: 69.0 ml; Total Saline Delivered: 109.0 ml RENAL FUNCTION: BUN 14; creatinine 0.86 RADIATION DOSE: Up-to-date CT equipment and radiation dose reduction techniques were employed. CTDIv ol: 14.8 - 26.4 mGy. DLP: 545 mGy-cm. . LIMITATIONS: None. FINDINGS: LUNGS AND PLEURA: Re- demonstration of chronic interstitial lung disease, unchanged in thi s short study interval. No focal consolidation or mass. AORTA AND GREAT VESSELS: Ectatic ascending aorta. No evidence of dissection. HEART: Persistent pericardial effusion, not significantly changed in this short study interval. PULMONARY ARTERIES: No emboli visualized in the main pulmonary arteries or the segmental branches. HILAR AND MEDIASTINAL STRUCTURES: Soft tissue attenuation fullness seen throughout the mediastinum ap pears unchanged. HARDWARE: None in the chest. UPPER ABDOMEN: No significant findings. Limited exam. THYROID AND OTHER SOFT TISSUES: No masses. No adenopathy. BONES: No acute or significant finding. 3D MIPS: Confirm above findings. OTHER: No other significant finding. IMPRESSION: NO PULMONARY EMBOLI. STABLE BACKGROUND OF PULMONARY FIBROSIS, PERICARDIAL EFFUSION, AND MEDIASTINAL FULLNESS NOT SIGNIFICANTLY CHANGED FROM 11/11/2016 CT IMAGING. TECHNICAL DOCUMENTATION: JOB ID: [id number] Quality ID # [id number]: Final reports with documentation of one or more dose reduction techniques (e.g., Au tomated exposure control, adjustment of the mA and/or kV according to patient size, use of iterative reconstruction technique) 2010 [employer]- All Rights Reserved
[2016-11-14] MEDS: METHYLPREDNISOLONE INJ 125 MG/2 ML SDV IV SCH (21:53)
[2016-11-14] MEDS: LATANOPROST 0.005% OPH SOLN 2.5 ML OD SCH (21:53)
[2016-11-14] MEDS: ATORVASTATIN CALCIUM 40 MG TABLET PO SCH (21:53)
[2016-11-15 05:28] LABS: ABSOLUTE LYMPHOCYTES (AUTO) 0.4 10^3/uL (0.5-4.7); ABSOLUTE MONOCYTES (AUTO) 0.1 10^3/uL (0.1-1.4); ABSOLUTE NEUT (AUTO) 3.3 10^3/uL (1.7-8.2); BASOPHILS % (AUTO) 0.3 % (0-2); HEMATOCRIT 34.5 % (36.0-47.0); HEMOGLOBIN 11.6 g/dL (12.0-15.5); HGB HCT DIFFERENCE 0.3; LYMPHOCYTES % (AUTO) 10.9 % (13-45); MEAN CORPUSCULAR HEMOGLOBIN 31.4 pg (27.0-33.4); MEAN CORPUSCULAR HGB CONC 33.5 g/dL (32.0-36.0); MEAN CORPUSCULAR VOLUME 94 fl (80-97); MONOCYTES % (AUTO) 1.8 % (3-13); RED BLOOD COUNT 3.69 10^6/uL (3.72-5.28); RED CELL DISTRIBUTION WIDTH 16.4 % (11.5-14.0); WHITE BLOOD COUNT 3.8 10^3/uL (4.0-10.5)
[2016-11-15] MEDS: METHYLPREDNISOLONE INJ 125 MG/2 ML SDV IV SCH ×3 (05:33→21:49)
[2016-11-15 05:43] LABS: ALANINE AMINOTRANSFERASE 31 U/L (9-52); ALBUMIN 3.6 g/dL (3.5-5.0); ALKALINE PHOSPHATASE 85 U/L (38-126); ANION GAP 10 (5-19); ASPARTATE AMINO TRANSFERASE 14 U/L (14-36); BILIRUBIN,DIRECT 0.3 mg/dL (0.0-0.4); BILIRUBIN,TOTAL 1.3 mg/dL (0.2-1.3); BLOOD UREA NITROGEN 15 mg/dL (7-20); CALCIUM 9.1 mg/dL (8.4-10.2); CARBON DIOXIDE 25 mmol/L (22-30); CHLORIDE 105 mmol/L (98-107); CREATININE RESULT 0.82 mg/dL (0.52-1.25); GLUCOSE 224 mg/dL (75-110); POTASSIUM 4.2 mmol/L (3.6-5.0); SODIUM 140.1 mmol/L (137-145); TOTAL PROTEIN 6.5 g/dL (6.3-8.2)
[2016-11-15 10:31] LABS: ANTI-SS-B AB SJOGREN'S <0.2 AI (0.0-0.9)
[2016-11-15] MEDS: DILTIAZEM HCL 180 MG CAPSULE.CR PO SCH (10:46)
[2016-11-15] MEDS: FLUTICASONE/SALMETEROL DISKUS 500-50 MCG/DOSE IH SCH ×2 (10:46→17:09)
[2016-11-15] MEDS: LANSOPRAZOLE 30 MG TAB.RAP.DR PO SCH ×2 (10:46→21:49)
[2016-11-15] MEDS: TIOTROPIUM BROMIDE DPI 5 CAP/KIT (18 MCG/CAP) IH SCH (10:46)
[2016-11-15] MEDS ORDERED: GLUCAGON,HUMAN RECOMB 1 MG INJ IM PRN (12:49)
[2016-11-15] MEDS ORDERED: DEXTROSE 50%-WATER SYRINGE 25 GM/50 ML DOSE IV PRN (12:49)
[2016-11-15] MEDS ORDERED: DEXTROSE 40% GEL 15 GM TUBE X 2 PO PRN (12:49)
[2016-11-15] MEDS ORDERED: DEXTROSE 50%-WATER SYRINGE 12.5 GM/25 ML DOSE IV PRN (12:49)
[2016-11-15] MEDS ORDERED: DEXTROSE 40% GEL 15 GM TUBE PO PRN (12:49)
[2016-11-15] MEDS: TRAMADOL HCL 50 MG TABLET PO PRN (13:34)
--- NOTE | 2016-11-15 13:46 | EKG REPORT ---
SEVERITY:- ABNORMAL ECG - SINUS RHYTHM LEFT ATRIAL ABNORMALITY LEFT ANTERIOR FASCICULAR BLOCK BORDERLINE R WAVE PROGRESSION, ANTERIOR LEADS BORDERLINE T ABNORMALITIES, DIFFUSE LEADS : Confirmed by: Alice Howard MD 15-Nov-2016 13:45:43
--- NOTE | 2016-11-15 14:29 | PDOC PROGRESS REPORT ---
Subjective Progress Note for:: 11/15/16 Subjective:: She was seen by the bedside, yesterday CTA of the chest was done because of severe hypoxemia, it was negative for pulmonary embolism, she was also started on intravenous Solu-Medrol, patient seems to be responding quite well to the steroid, she is able to ambulate somewhat without much short of breath. She was seen by pulmonary Dr. Watts, the front window cashier is of the opinion that the CT scan findings of pulmonary fibrosis is not typical for idiopathic pulmonary fibrosis because the fibrosis are mainly in the upper lobes typically the fibrosis of idiopathic pulmonary fibrosis is mainly in the lower lobes and is honeycombing in pattern Physical Exam Vital Signs: Temp Pulse Resp BP Pulse Ox 97.5 F 91 15 159/88 H 93 11/15/16 11:47 11/15/16 11:47 11/15/16 11:47 11/15/16 11:47 11/15/16 11:47 Intake & Output 11/14/16 11/15/16 11/16/16 06:59 06:59 06:59 Intake Total 1410 3050 990 Balance 1410 3050 990 General appearance: PRESENT: no acute distress Head exam: PRESENT: atraumatic, normocephalic Eye exam: PRESENT: conjunctiva pink, EOMI, PERRLA. ABSENT: scleral icterus Ear exam: PRESENT: normal external ear exam Mouth exam: PRESENT: moist, tongue midline Neck exam: PRESENT: full ROM Respiratory exam: PRESENT: rales Cardiovascular exam: PRESENT: RRR, +S1, +S2 Vascular exam: PRESENT: normal capillary refill GI/Abdominal exam: PRESENT: normal bowel sounds, soft Rectal exam: PRESENT: deferred Neurological exam: PRESENT: alert, CN II-XII grossly intact Psychiatric exam: PRESENT: appropriate affect, normal mood Skin exam: PRESENT: dry, intact, warm. ABSENT: cyanosis, rash Results Laboratory Results: 11/15/16 05:01 11/15/16 05:01 11/14/16 11/14/16 11/15/16 15:23 15:23 05:01 WBC 7.7 3.8 L RBC 3.64 L 3.69 L Hgb 11.3 L 11.6 L Hct 33.9 L 34.5 L MCV 93 94 MCH 31.0 31.4 MCHC 33.4 33.5 RDW 16.3 H 16.4 H Plt Count 243 239 Seg Neutrophils % 73.6 87.0 H Lymphocytes % 16.0 10.9 L Monocytes % 7.3 1.8 L Eosinophils % 2.1 0.0 Basophils % 1.0 0.3 Absolute Neutrophils 5.6 3.3 Absolute Lymphocytes 1.2 0.4 L Absolute Monocytes 0.6 0.1 Absolute Eosinophils 0.2 0.0 Absolute Basophils 0.1 0.0 Sodium 139.0 Potassium 4.1 Chloride 103 Carbon Dioxide 27 Anion Gap 9 BUN 14 Creatinine 0.86 Est GFR ( Amer) > 60 Est GFR (Non-Af Amer) > 60 Glucose 101 Calcium 9.0 Total Bilirubin 2.1 H AST 17 ALT 30 Alkaline Phosphatase 100 Total Protein 6.6 Albumin 3.7 11/15/16 05:01 WBC RBC Hgb Hct MCV MCH MCHC RDW Plt Count Seg Neutrophils % Lymphocytes % Monocytes % Eosinophils % Basophils % Absolute Neutrophils Absolute Lymphocytes Absolute Monocytes Absolute Eosinophils Absolute Basophils Sodium 140.1 Potassium 4.2 Chloride 105 Carbon Dioxide 25 Anion Gap 10 BUN 15 Creatinine 0.82 Est GFR ( Amer) > 60 Est GFR (Non-Af Amer) > 60 Glucose 224 H Calcium 9.1 Total Bilirubin 1.3 AST 14 ALT 31 Alkaline Phosphatase 85 Total Protein 6.5 Albumin 3.6 11/11/16 11/11/16 11/11/16 02:59 02:59 08:30 Creatine Kinase 47 47 CK-MB (CK-2) 1.16 Troponin I 0.024 11/11/16 11/11/16 11/11/16 08:30 16:05 16:05 Creatine Kinase 33 CK-MB (CK-2) 1.02 0.81 Troponin I 0.017 0.016 11/13/16 06:29 Creatine Kinase 42 CK-MB (CK-2) Troponin I Impressions: Chest X-Ray 11/10/16 14:34 IMPRESSION: Cardiomegaly and moderate chronic interstitial changes. Chest CT 11/11/16 00:00 IMPRESSION: No significant interval changes compared to the previous study. No acute changes. The previously described extensive chronic interstitial lung disease consistent with pulmonary fibrosis is again identified and appears stable. Small pericardial effusion appears stable. Other findings as noted above Chest/Abdomen CTA 11/14/16 00:00 IMPRESSION: NO PULMONARY EMBOLI. STABLE BACKGROUND OF PULMONARY FIBROSIS, PERICARDIAL EFFUSION, AND MEDIASTINAL FULLNESS NOT SIGNIFICANTLY CHANGED FROM CT IMAGING. Assessment & Plan - Diagnosis (1) Chest pain Qualifiers: Chest pain type: unspecified Qualified Code(s): R07.9 - Chest pain, unspecified Is this a current diagnosis for this admission?: Yes (2) Idiopathic pulmonary fibrosis Is this a current diagnosis for this admission?: Yes (3) Type 2 diabetes mellitus Qualifiers: Diabetes mellitus complication status: without complication Diabetes mellitus fdc insulin use: without fdc use Qualified Code(s): E11.9 - Type 2 diabetes mellitus without complications Is this a current diagnosis for this admission?: Yes (4) Acute hypoxemic respiratory failure Is this a current diagnosis for this admission?: Yes
--- NOTE | 2016-11-15 15:43 | PROGRESS NOTE E ---
Progress Note NAME: SEUN BETH : 1945 AGE: 71Y DATE: 11/14/2016 ROOM: 529 SUBJECTIVE: The patient is 71-year-old -[place] female with a past medical history of chronic interstitial lung disease, pulmonary fibrosis. Admitted 3 days ago because of the chest tightness and the fever and coughing and shortness of breath. The patient claimed that her dyspnea is about the same in the last few weeks. She was brought to the hospital because of severe coughing and as well she got dizzy with chest tightness and daughter thought she had a seizure. Currently she is feeling well, although still short of breath. Denies any fevers, chills. Denies any increasing cough or purulent sputum or chest pain or hemoptysis. Had a chest CTA done today showing absence of pulmonary embolus. There is no pleural effusion. Stable parenchymal findings compared to the recent previous CT scan. Reviewed the CT scan back on 02/10/2007 and compared to the CT scan in 11/14/2016. The patient has this chronic right upper lobe infiltrate which seems to be stable or seems to be slightly more over the last 10 years on the right upper lobe and slightly prominent interstitial changes which seem to be of UIP pattern. No vomiting, no diarrhea, no abdominal pain. OBJECTIVE: GENERAL: On physical exam the patient is awake, oriented x3. VITAL SIGNS: Temperature of 98.1 with T-max of 98.7, blood pressure 143/68, heart rate is 92, saturation is 94% on 3 L nasal cannula, respiratory is 20. EYES: No jaundice, no pallor. EARS, NOSE, AND THROAT: No ear drainage. No nasal discharge. HEAD AND NECK: No scalp swelling or tenderness. Neck is supple. CHEST AND LUNGS: Some crackly sounds bibasilar. CARDIAC: S1, S2 distant. No murmurs, no gallops, no rubs. ABDOMEN: Flabby, positive bowel sounds, soft, nondistended, nontender. EXTREMITIES: No joint swelling, no cellulitis. LABORATORY DATA: CBC done today showed white count 7.7, hemoglobin is 11.3, hematocrit 33.9, and platelet count is 243. Chemistry done today also showed sodium 149, potassium 4.1, chloride 103, CO2 is 37, BUN is 14, creatinine is 0.89, glucose 101, and calcium is 9, total BILI is 0.1 and direct BILI 0.2, SGOT 17, SGPT 13, alkaline phosphatase 100, total protein 6.6. Connective tissue workup; labs are still pending. ASSESSMENT: 1. CHRONIC INTERSTITIAL LUNG DISEASE. POSSIBLE CONNECTIVE TISSUE DISEASE. CURRENTLY ON PREDNISONE. THE RIGHT UPPER LOBE INFILTRATE IS SUSPICIOUS FOR FIBROTIC PATTERN, UIP PATTERNS. THIS MAY BE DUE TO CHRONIC ASPIRATION OF GASTRIC CONTENTS OR SEVERE GERD. 2. BRONCHIAL ASTHMA, CURRENTLY STABLE. 3. 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 PLAN/RECOMMENDATION: 1. Continue inhalers, Advair 500/50 diskhaler one puff b.i.d. Continue Spiriva inhaler 1 capsule to be inhaled once day. 2. Recommend the patient may be changed to Levaquin 500 mg tablet p.o. daily starting tomorrow. 3. I do not think the patient will need steroids at this time. May consider discontinuing IV Solu-Medrol. 4. Pulmonary Clinic follow up in 2 weeks. 5. We will sign off tonight, if you have any questions please feel free to call me. 6. Consider GI consult for severe GERD. DICTATING PHYSICIAN: PIERCE WYMAN MD,JENNIFER,MPH [id number] PHY#: [id number] ID: [id number] JOB#: [id number] ACCT: [id number] cc: > MTDD
[2016-11-15] MEDS: NORMAL SALINE 1000 ML 1,000 ML IV PRN (17:08)
[2016-11-15] MEDS: LEVOFLOXACIN 750 MG/D5W RTU 750 MG/150 ML RTUPB IV SCH (17:08)
[2016-11-15] MEDS: LATANOPROST 0.005% OPH SOLN 2.5 ML OD SCH (21:49)
[2016-11-15] MEDS: ATORVASTATIN CALCIUM 40 MG TABLET PO SCH (21:49)
[2016-11-15] MEDS: INSULIN REG, HUMAN 100 UNIT/ML 3 ML VIAL (PYX) SUBCUT PRN (21:59)
[2016-11-16] MEDS: TRAMADOL HCL 50 MG TABLET PO PRN (03:25)
[2016-11-16] MEDS ORDERED: ACETAMINOPHEN 325 MG TABLET PO PRN (05:07)
[2016-11-16] MEDS: METHYLPREDNISOLONE INJ 125 MG/2 ML SDV IV SCH ×2 (05:56→15:14)
[2016-11-16] MEDS: NORMAL SALINE 1000 ML 1,000 ML IV PRN (05:56)
[2016-11-16] MEDS: DILTIAZEM HCL 180 MG CAPSULE.CR PO SCH (10:51)
[2016-11-16] MEDS: TIOTROPIUM BROMIDE DPI 5 CAP/KIT (18 MCG/CAP) IH SCH (10:51)
[2016-11-16] MEDS: FLUTICASONE/SALMETEROL DISKUS 500-50 MCG/DOSE IH SCH ×2 (10:51→17:34)
[2016-11-16] MEDS: LANSOPRAZOLE 30 MG TAB.RAP.DR PO SCH ×2 (10:51→22:45)
[2016-11-16] MEDS: LEVOFLOXACIN 750 MG TABLET PO SCH (15:14)
[2016-11-16] MEDS: INSULIN REG, HUMAN 100 UNIT/ML 3 ML VIAL (PYX) SUBCUT PRN ×2 (17:33→22:45)
--- NOTE | 2016-11-16 20:32 | PDOC PROGRESS REPORT ---
Subjective Progress Note for:: 11/16/16 Subjective:: Patient was seen by the bedside, she continues to improve with IV Solu-Medrol, we will taper down the dose of Solu-Medrol and hopefully discharge home 1 or 2 days time. She developed hyperglycemia secondary to the Solu-Medrol. Physical Exam Vital Signs: Temp Pulse Resp BP Pulse Ox 97.7 F 72 18 139/63 H 96 11/16/16 16:52 11/16/16 16:52 11/16/16 16:52 11/16/16 16:52 11/16/16 16:52 Intake & Output 11/15/16 11/16/16 11/17/16 06:59 06:59 06:59 Intake Total 3050 3130 747 Output Total 0 Balance 3050 3130 747 Weight 71.2 kg General appearance: PRESENT: no acute distress Eye exam: PRESENT: PERRLA Respiratory exam: PRESENT: rales Cardiovascular exam: PRESENT: +S1, +S2 GI/Abdominal exam: PRESENT: soft Neurological exam: PRESENT: alert, CN II-XII grossly intact Results Laboratory Results: 11/15/16 05:01 11/15/16 05:01 Impressions: Chest X-Ray 11/10/16 14:34 IMPRESSION: Cardiomegaly and moderate chronic interstitial changes. Chest CT 11/11/16 00:00 IMPRESSION: No significant interval changes compared to the previous study. No acute changes. The previously described extensive chronic interstitial lung disease consistent with pulmonary fibrosis is again identified and appears stable. Small pericardial effusion appears stable. Other findings as noted above Chest/Abdomen CTA 11/14/16 00:00 IMPRESSION: NO PULMONARY EMBOLI. STABLE BACKGROUND OF PULMONARY FIBROSIS, PERICARDIAL EFFUSION, AND MEDIASTINAL FULLNESS NOT SIGNIFICANTLY CHANGED FROM CT IMAGING. Assessment & Plan - Diagnosis (1) Chest pain Qualifiers: Chest pain type: unspecified Qualified Code(s): R07.9 - Chest pain, unspecified Is this a current diagnosis for this admission?: Yes (2) Idiopathic pulmonary fibrosis Is this a current diagnosis for this admission?: Yes (3) Type 2 diabetes mellitus Qualifiers: Diabetes mellitus complication status: without complication Diabetes mellitus senior care insulin use: without senior care use Qualified Code(s): E11.9 - Type 2 diabetes mellitus without complications Is this a current diagnosis for this admission?: Yes (4) Acute hypoxemic respiratory failure Is this a current diagnosis for this admission?: YesPlan: The Solu-Medrol dose to be decreased for 30 mg IV every 8
[2016-11-16] MEDS: METHYLPREDNISOLONE INJ 40 MG/1 ML SDV IV SCH (22:45)
[2016-11-16] MEDS: ATORVASTATIN CALCIUM 40 MG TABLET PO SCH (22:45)
[2016-11-16] MEDS: LATANOPROST 0.005% OPH SOLN 2.5 ML OD SCH (22:52)
[2016-11-17] MEDS: METHYLPREDNISOLONE INJ 40 MG/1 ML SDV IV SCH ×3 (05:46→21:30)
[2016-11-17] MEDS: FLUTICASONE/SALMETEROL DISKUS 500-50 MCG/DOSE IH SCH ×2 (10:54→17:19)
[2016-11-17] MEDS: LANSOPRAZOLE 30 MG TAB.RAP.DR PO SCH ×2 (10:54→21:30)
[2016-11-17] MEDS: DILTIAZEM HCL 180 MG CAPSULE.CR PO SCH (10:54)
[2016-11-17] MEDS: TIOTROPIUM BROMIDE DPI 5 CAP/KIT (18 MCG/CAP) IH SCH (10:54)
[2016-11-17] MEDS: LEVOFLOXACIN 750 MG TABLET PO SCH (17:18)
[2016-11-17] MEDS: INSULIN REG, HUMAN 100 UNIT/ML 3 ML VIAL (PYX) SUBCUT PRN ×2 (17:19→22:26)
[2016-11-17 17:37] LABS: ANTIPROTEINASE 3 (PR-3) AB <3.5 U/mL (0.0-3.5); CYTOPLASMIC (C-ANCA) <1:20 titer (Neg:<1:20)
[2016-11-17] MEDS: LATANOPROST 0.005% OPH SOLN 2.5 ML OD SCH (21:30)
[2016-11-17] MEDS: ATORVASTATIN CALCIUM 40 MG TABLET PO SCH (21:30)
[2016-11-17 23:13] LABS: ANION GAP 11 (5-19); BLOOD UREA NITROGEN 21 mg/dL (7-20); CALCIUM 9.3 mg/dL (8.4-10.2); CARBON DIOXIDE 26 mmol/L (22-30); CHLORIDE 101 mmol/L (98-107); CREATININE RESULT 0.81 mg/dL (0.52-1.25); GLUCOSE 207 mg/dL (75-110); MAGNESIUM 1.7 mg/dL (1.6-2.3); POTASSIUM 4.2 mmol/L (3.6-5.0); SODIUM 138.4 mmol/L (137-145)
[2016-11-18] MEDS: METHYLPREDNISOLONE INJ 40 MG/1 ML SDV IV SCH ×2 (06:26→14:03)
[2016-11-18] MEDS: INSULIN REG, HUMAN 100 UNIT/ML 3 ML VIAL (PYX) SUBCUT PRN (08:18)
[2016-11-18] MEDS: LANSOPRAZOLE 30 MG TAB.RAP.DR PO SCH (09:12)
[2016-11-18] MEDS: DILTIAZEM HCL 180 MG CAPSULE.CR PO SCH (09:12)
[2016-11-18] MEDS: FLUTICASONE/SALMETEROL DISKUS 500-50 MCG/DOSE IH SCH (09:14)
[2016-11-18] MEDS: TIOTROPIUM BROMIDE DPI 5 CAP/KIT (18 MCG/CAP) IH SCH (12:42)
[2016-11-18] MEDS: LEVOFLOXACIN 750 MG TABLET PO SCH (14:03)
[2016-11-18 15:35] VITALS: BP 139/63
--- NOTE | 2016-11-18 16:21 | EKG REPORT ---
SEVERITY:- ABNORMAL ECG - SINUS RHYTHM LEFT ATRIAL ABNORMALITY LEFT AXIS DEVIATION ABNRM R PROG, CONSIDER ASMI OR LEAD PLACEMENT BORDERLINE T ABNORMALITIES, ANTERIOR LEADS : Confirmed by: Alice Howard MD 18-Nov-2016 16:20:46
--- NOTE | 2016-11-18 17:39 | PDOC PROGRESS REPORT ---
Subjective Progress Note for:: 11/17/16 Subjective:: Patient was seen by the bedside she continues to improve on the IV Solu-Medrol hopefully she will be discharged home tomorrow Physical Exam Vital Signs: Temp Pulse Resp BP Pulse Ox 98.4 F 87 18 139/63 H 98 11/18/16 15:30 11/18/16 15:30 11/18/16 15:30 11/18/16 15:30 11/18/16 15:30 Intake & Output 11/17/16 11/18/16 11/19/16 06:59 06:59 06:59 Intake Total 1087 0 Output Total 0 Balance 1087 0 Weight 76.6 kg 75.9 kg General appearance: PRESENT: no acute distress, well-developed, well-nourished Head exam: PRESENT: atraumatic, normocephalic Eye exam: PRESENT: conjunctiva pink, EOMI, PERRLA Ear exam: PRESENT: normal external ear exam Mouth exam: PRESENT: moist, tongue midline Neck exam: PRESENT: full ROM Respiratory exam: PRESENT: rales Cardiovascular exam: PRESENT: RRR, +S1, +S2 Pulses: PRESENT: normal dorsalis pedis pul, +2 pedal pulses bilateral Vascular exam: PRESENT: normal capillary refill GI/Abdominal exam: PRESENT: normal bowel sounds, soft Rectal exam: PRESENT: deferred Neurological exam: PRESENT: alert, awake, oriented to person, oriented to place , oriented to time, oriented to situation, CN II-XII grossly intact. ABSENT: motor sensory deficit Psychiatric exam: PRESENT: appropriate affect, normal mood Skin exam: PRESENT: dry, intact, warm Results Laboratory Results: 11/15/16 05:01 11/17/16 22:47 11/17/16 22:47 Sodium 138.4 Potassium 4.2 Chloride 101 Carbon Dioxide 26 Anion Gap 11 BUN 21 H Creatinine 0.81 Est GFR ( Amer) > 60 Est GFR (Non-Af Amer) > 60 Glucose 207 H Calcium 9.3 Magnesium 1.7 Impressions: Chest X-Ray 11/10/16 14:34 IMPRESSION: Cardiomegaly and moderate chronic interstitial changes. Chest CT 11/11/16 00:00 IMPRESSION: No significant interval changes compared to the previous study. No acute changes. The previously described extensive chronic interstitial lung disease consistent with pulmonary fibrosis is again identified and appears stable. Small pericardial effusion appears stable. Other findings as noted above Chest/Abdomen CTA 11/14/16 00:00 IMPRESSION: NO PULMONARY EMBOLI. STABLE BACKGROUND OF PULMONARY FIBROSIS, PERICARDIAL EFFUSION, AND MEDIASTINAL FULLNESS NOT SIGNIFICANTLY CHANGED FROM CT IMAGING. Assessment & Plan - Diagnosis (1) Chest pain Qualifiers: Chest pain type: unspecified Qualified Code(s): R07.9 - Chest pain, unspecified Is this a current diagnosis for this admission?: Yes (2) Idiopathic pulmonary fibrosis Is this a current diagnosis for this admission?: Yes (3) Type 2 diabetes mellitus Qualifiers: Diabetes mellitus complication status: without complication Diabetes mellitus assisted insulin use: without truck terminal manager use Qualified Code(s): E11.9 - Type 2 diabetes mellitus without complications Is this a current diagnosis for this admission?: Yes (4) Acute hypoxemic respiratory failure Is this a current diagnosis for this admission?: Yes
--- NOTE | 2016-11-18 17:45 | PDOC DISCHARGE SUMMARY ---
General - Admit/Disc Date/PCP Admission Date/Primary Care Provider: 11/13/16 19:08 CHIKI ESCOBEDO MD Discharge Date: 11/18/16 - Discharge Diagnosis (1) Acute hypoxemic respiratory failure Is this a current diagnosis for this admission?: Yes (2) Chest pain Is this a current diagnosis for this admission?: Yes (3) Idiopathic pulmonary fibrosis Is this a current diagnosis for this admission?: Yes (4) Type 2 diabetes mellitus Is this a current diagnosis for this admission?: Yes - Additional Information Discharge Diet: Diabetic Discharge Activity: Activity As Tolerated, Balance Activity w/Rest, Energy Conservation Home Medications: Albuterol Sulfate [Albuterol Sulfate 2.5mg/3 mL] 1 vial IH Q6HP PRN 11/11/16 Albuterol Sulfate [Proair HFA Inhalation Aerosol 8.5 gm MDI] 2 puff IH Q6HP PRN 11/11/16 Atorvastatin Calcium [Lipitor 40 mg Tablet] 40 mg PO QHS 11/11/16 Diltiazem HCl [Cartia Xt] 180 mg PO DAILY 11/11/16 Latanoprost [Xalatan 0.005% Oph Soln 2.5 ml] 1 drop OD QHS 11/11/16 Tramadol HCl [Ultram 50 mg Tablet] 50 mg PO Q6HP PRN 11/11/16 Acetaminophen [Tylenol 325 mg Tablet] 650 mg PO Q6HP PRN #0 tablet 11/18/16 Fluticasone/Salmeterol [Advair 500-50 Diskus 14 Dose/Diskus] 1 inh IH BID #2 inhaler 11/18/16 Tiotropium Gomer [Spiriva Handihaler 5 Cap/Kit (18 Mcg/Cap)] 1 cap IH DAILY # 1 kit 11/18/16 History of Present Illness History of Present Illness: SEUN BETH is a 71 year old female, She came to emergency room for evaluation of chest pain, patient is well-known to me she has a history of severe pulmonary hypertension and chronic interstitial lung disease, idiopathic pulmonary fibrosis. She was seen in the office last week when she presented to the office with complaint of chest pain, the chest pain she has now is no different from the chest pain she had when I saw her in the office, the chest pain is probably related to the chronic lung disease, CT chest without contrast was obtained it shows the previously described extensive chronic interstitial pulmonary fibrosis appears stable, emergency room physician is recommending hospital admission Hospital Course Hospital Course: Patient was admitted initially for observation for the management of chest pain , she came to the emergency room primarily for evaluation of chest pain, she was admitted for rule out CA protocol. Hospital course was complicated with acute hypoxemic respiratory failure, patient respiratory status decompensated requiring a noninvasive positive pressure ventilation with BiPAP. CTA chest was done it was negative for pulmonary embolism or acute infiltrate to suggest pneumonia. She was treated empirically with IV Solu-Medrol, she was seen by pulmonary Dr. Watts, she has underlining history of pulmonary fibrosis. She improved with this regimen, the lung specialist requested for autoantibody test all came back negative. Physical Exam Vital Signs: Temp Pulse Resp BP Pulse Ox 98.4 F 87 18 139/63 H 98 11/18/16 15:30 11/18/16 15:30 11/18/16 15:30 11/18/16 15:30 11/18/16 15:30 Intake & Output 11/17/16 11/18/16 11/19/16 06:59 06:59 06:59 Intake Total 1087 2070 Output Total 0 Balance 1087 2070 Weight 76.6 kg 75.9 kg General appearance: PRESENT: no acute distress, well-developed, well-nourished Head exam: PRESENT: atraumatic, normocephalic Eye exam: PRESENT: conjunctiva pink, EOMI, PERRLA Ear exam: PRESENT: normal external ear exam Mouth exam: PRESENT: moist, tongue midline Neck exam: PRESENT: full ROM. ABSENT: carotid bruit, JVD, lymphadenopathy, thyromegaly Respiratory exam: PRESENT: rales Cardiovascular exam: PRESENT: RRR, +S1, +S2 Pulses: PRESENT: normal dorsalis pedis pul, +2 pedal pulses bilateral Vascular exam: PRESENT: normal capillary refill GI/Abdominal exam: PRESENT: normal bowel sounds, soft Rectal exam: PRESENT: deferred Neurological exam: PRESENT: alert, awake, oriented to person, oriented to place , oriented to time, oriented to situation, CN II-XII grossly intact Psychiatric exam: PRESENT: appropriate affect Skin exam: PRESENT: dry, intact, warm Results Laboratory Results: 11/15/16 05:01 11/17/16 22:47 11/17/16 22:47 Sodium 138.4 Potassium 4.2 Chloride 101 Carbon Dioxide 26 Anion Gap 11 BUN 21 H Creatinine 0.81 Est GFR ( Amer) > 60 Est GFR (Non-Af Amer) > 60 Glucose 207 H Calcium 9.3 Magnesium 1.7 Impressions: Chest X-Ray 11/10/16 14:34 IMPRESSION: Cardiomegaly and moderate chronic interstitial changes. Chest CT 11/11/16 00:00 IMPRESSION: No significant interval changes compared to the previous study. No acute changes. The previously described extensive chronic interstitial lung disease consistent with pulmonary fibrosis is again identified and appears stable. Small pericardial effusion appears stable. Other findings as noted above Chest/Abdomen CTA 11/14/16 00:00 IMPRESSION: NO PULMONARY EMBOLI. STABLE BACKGROUND OF PULMONARY FIBROSIS, PERICARDIAL EFFUSION, AND MEDIASTINAL FULLNESS NOT SIGNIFICANTLY CHANGED FROM CT IMAGING.
== END 2016-11-18 16:46 | disposition home or self-care (01) | DRG 196 ==
LOC: ER 13:55 → EH 21:15 → UNDOADMOB 21:15 → 5 11-11 02:00 → EH 11-11 02:00 → 5 11-11 02:30 → OBSVTOIN 11-11 02:30 → INTOOBSV 11-11 02:30 → EH 11-11 02:30 → OBSVTOIN 11-13 19:08
PROVIDERS: ADMIT Internal Medicine; ATTEND Internal Medicine
PROC: 5A09457 Assistance with Respiratory Ventilation, 24-96 Consecutive Hours, Continuous Positive Airway Pressure (ICD-10-PCS; principal; 2016-11-13)
PROC: 3E0F73Z Introduction of Anti-inflammatory into Respiratory Tract, Via Natural or Artificial Opening (ICD-10-PCS; 2016-11-14)
DX: J84.112 Idiopathic pulmonary fibrosis (principal); J96.01 Acute respiratory failure with hypoxia; E78.5 Hyperlipidemia, unspecified; J44.9 Chronic obstructive pulmonary disease, unspecified; D64.9 Anemia, unspecified; K21.9 Gastro-esophageal reflux disease without esophagitis; I10 Essential (primary) hypertension; E11.65 Type 2 diabetes mellitus with hyperglycemia; T38.0X5A Adverse effect of glucocorticoids and synthetic analogues, initial encounter; Z90.49 Acquired absence of other specified parts of digestive tract; Z90.710 Acquired absence of both cervix and uterus; Z87.891 Personal history of nicotine dependence; Z79.899 Other long term (current) drug therapy
CPT/HCPCS: 36415; 36600; 71020; 71250; 71275; 80048; 80053; 82085; 82550; 82553; 82803; 82962; 83516; 83735; 84484; 85025; 85652; 86038; 86140; 86235; 86256; 93005; 93010; 99285; G0378; J1815; J1956; J2920; J2930; J3490; J7030; J7620